=== PATIENT | female | born 1990 | race Caucasian/White ===

== ENCOUNTER → 2021-10-27 11:00 | Outpatient (BNVA) | payer MEDICARE, MEDICAID, OTHER, SELFPAY | PROVIDERS: PCP Internal Medicine; Visit Provider Anesthesiology | DX: M79.7 Fibromyalgia (principal); M47.812 Spondylosis without myelopathy or radiculopathy, cervical region; M47.816 Spondylosis without myelopathy or radiculopathy, lumbar region; M46.1 Sacroiliitis, not elsewhere classified | CPT/HCPCS: 99202 ==

== ENCOUNTER 2021-12-12 10:32 | Day surgery (SDC) | payer MEDICARE, MEDICAID, SELFPAY ==
--- NOTE | 2021-11-27 09:08 | P.CONAN_ITS ---
Documented by User: Karen Bravo NP 11/27/21 09:09 HPI - Anesthesia Eval Consult details Narrative: 31yo F for Right Sacroiliac Joint Innervation Injection PMFSH Active Problems Active Problems: All Active Problems (Updated 10/27/21 @ 11:48 by Wilian Lopez MD) Sacroiliitis (Acute) Spondylosis of lumbar region without myelopathy or radiculopathy (Acute) Spondylosis of cervical joint without myelopathy (Acute) Fibromyalgia (Acute) Past Medical History Medical History (Updated 12/12/21 @ 10:53 by Pam Ochoa, RN) Fibromyalgia HGSIL (high grade squamous intraepithelial lesion) on Pap smear of cervix Hx LEEP (loop electrosurgical excision procedure), cervix, Hydradenitis Major depression Marijuana use Obesity Sacroiliac joint dysfunction Sacroiliitis Scoliosis associated with other condition 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 Stress incontinence Social History Social History (System 11/20/21 @ 10:37 by Cat Colin) Patient Tobacco Use Status: Current everyday Tobacco user Tobacco use type: Cigarette Cigarettes Per Day: 10 Use of substances other than those prescribed or required for medical reasons: Yes Substance Use Frequency: Occasionally Are you DNR?: No Advance Directives: No Advance Directives Information Provided: Yes Meds Allergies Allergy/AdvReac Type Severity Reaction Status Date / Time bee pollen [BEE STINGS] Allergy Unknown ANAPHYLAXIS Verified 12/12/21 10:53 bee strings Allergy Unknown sweling Uncoded 11/20/21 10:37 Home Medications Medication Instructions Recorded Confirmed Last Taken Type trazodone 50 mg tablet 50 mg PO BEDTIME PRN 10/27/21 Unknown History venlafaxine 75 mg capsule,extended 75 mg PO DAILY 10/27/21 Unknown History release 24 hr (Effexor XR) Exam Exam Date and Time: November 27, [id number] Assessment and Plan Assessment Anesthesia Assessment: Chart Reviewed Documented by User: Derrek Naidu MD 12/12/21 11:57 [facility] Past Medical History Medical History (Updated 12/12/21 @ 10:53 by Pam Ochoa, RN) Fibromyalgia HGSIL (high grade squamous intraepithelial lesion) on Pap smear of cervix Hx LEEP (loop electrosurgical excision procedure), cervix, Hydradenitis Major depression Marijuana use Obesity Sacroiliac joint dysfunction Sacroiliitis Scoliosis associated with other condition 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 Stress incontinence Family History Family history of problems with anesthesia: No Surgical History History of Problems with Anesthesia: No Social History Social History (System 11/20/21 @ 10:37 by Cat Colin) Patient Tobacco Use Status: Current everyday Tobacco user Tobacco use type: Cigarette Cigarettes Per Day: 10 Use of substances other than those prescribed or required for medical reasons: Yes Substance Use Frequency: Occasionally Are you DNR?: No Advance Directives: No Advance Directives Information Provided: Yes Meds Allergies Allergy/AdvReac Type Severity Reaction Status Date / Time bee pollen [BEE STINGS] Allergy Unknown ANAPHYLAXIS Verified 12/12/21 10:53 bee strings Allergy Unknown sweling Uncoded 11/20/21 10:37 Home Medications Medication Instructions Recorded Confirmed Last Taken Type trazodone 50 mg tablet 50 mg PO BEDTIME PRN 10/27/21 Unknown History venlafaxine 75 mg capsule,extended 75 mg PO DAILY 10/27/21 Unknown History release 24 hr (Effexor XR) Exam Airway Mallampati Class: II TM Dist: >3cm Neck ROM: Full Loose/Missing/Broken Teeth: No Heart: rrr+[id number] Lungs: cta b/l Assessment and Plan Assessment Anesthesia Assessment: Anesthesia Plan Discussed Final Anesthetic Review Family History of Problems with Anesthesia: No History of Problems with Anesthesia: No NPO: Yes ASA Class: II Final Preanesthetic Review: No Changes in Pt Med Stat, Meds/Allgs Chart Reviewed, Consent Obtained/Reviewed and Anes Risks/Benef Reviewed Patient Risk: Intermediate Procedure Risk: Low Assessment/Block/Sedation in SS: Assess/Block/Sedation-SS Anesthetic Plan Anesthetic Plan: MAC: and Agree w/ Assess. and Plan Disposition: Standard PACU
--- NOTE | ~2021-12-12 | FL_ITS ---
EXAMINATION: XR FLUOROSCOPY WITH IMAGES CLINICAL INFORMATION: Diagnostic SI joint innervation injection right. COMPARISON: None. TECHNIQUE: Fluoroscopy performed by Dr. Wilian Lopez Fluoroscopy time: 0.5 minutes DAP: 9 mGy-cm2 Images: 3 FINDINGS: Images demonstrate needle placement and contrast injection adjacent to the right side of the L5 vertebral body and inferior sacroiliac joint. FL/FL guidance in OR IMPRESSION: Fluoroscopy guidance for pain management procedure.
[2021-12-12 10:43] VITALS: BMI 32.3
[2021-12-12 10:53] VITALS: BP 127/79; PULSE 92; RESP 16; TEMP 36.5; O2SAT 97
[2021-12-12 11:00] LABS: UPreg QC Valid YES; Urine Pregnancy NEGATIVE (NEGATIVE)
[2021-12-12] MEDS: Lactated Ringers 1,000 ML 100 ML IVCONT (11:06)
--- NOTE | 2021-12-12 12:02 | P.HPSUR_ITS ---
Pre-Procedural Eval Section A Date of Service: 12/12/21 The patient is an INPATIENT: No Changes since office visit: Yes Patient answered all questions The History & Physical has been completed within 30 days and I have reviewed it.: No Section B Chief Complaint: sacroilitis Details of Present Illness: as above Relevant Family History (Specify if Yes): No Relevant Social History: Other (specify) Present Medications: None Medical History: No relevant PMH History of Previous Operations: No relevant previous surgery Allergies: Allergies Allergy/AdvReac Type Severity Reaction Status Date / Time bee pollen [BEE STINGS] Allergy Unknown ANAPHYLAXIS Verified 12/12/21 10:53 bee strings Allergy Unknown sweling Uncoded 11/20/21 10:37 Review of Systems Sugical H&P ROS: Negative: Constitution, Cardiovascular, Respiratory, Neurological, Psychiatric, Hem-Onc, Allergic/Immunologic, Gastrointestinal, Genitourinary, Musculoskeletal, Integumentary, Endocrine and Eyes/E ars/Nose/Throat Exam Surgical H&P Exam: Normal: HEENT, Normal: Heart, Normal: Lungs, Normal: Extremities, Normal: Abdomen, Normal: Skin and Normal: Neurological Plan Diagnosis/Plan: Unchanged I have reviewed the history and physical and performed a pertinent physical examination on my patient. No changes have occurred unless specified.
--- NOTE | 2021-12-12 12:44 | W.PM.OPN ---
Operative Note Operative Note Date of Service: 12/12/21 Narrative: ?Diagnostic SI joint innervation injection. Informed consent was explained thoroughly to the patient.? All questions about benefits and risks for the procedure were answered. ?Patient came to the operating room she was positioned prone on the operating table with the pillow under her pelvis.? [place] [employer] monitors were applied and patient was deeply sedated.? Opioids and ketamine were avoided during the sedation. ?Her lower back and buttocks was prepped with ChloraPrep prepped and draped with sterile towels.? Sterilely draped C-arm was brought over the operating field and sq picture of patient's pelvis was demonstrated on the screen.? ?The point of interests were delineated 1st:? Point A? as the?right S1 superior articular process at it's connection with right sacral alae.? ??point B: was determined as the lowest point of the right sacroiliac joint on sacral side of the joint.? The rest of the point of interests were determined as the line between the point A and the point?B?. ?? The needles between point A and point B were planned to insert in the straight line in palisade fashion.? The skin in the projection of the points of interest were injected with small amount of local lidocaine 2% and bupivacain 0.5% 1;1, after that 22 gauge 3-1/2 inch needles were driven to the point of interest in tunnel vision fashion. ?? When needles gently contacted the bone- the each point of interest small amount of bupivacaine 0.5% less than 1 cc was injected into each needle. ?Upon completion of the injections the needles were removed sterile dressing was applied.? The patient tolerated procedure well.? She went outside of the operating room to PACU where she recovered uneventfully.? She went home without immediate complications.
[2021-12-12 12:45] VITALS: BP 108/63; PULSE 92; RESP 16; TEMP 36.2; O2SAT 100
--- NOTE | 2021-12-12 12:46 | P.BOP_ITS ---
Brief Operative Note Date of Service: 12/12/21 Pre-op diagnosis: sacroiliitis Post-op diagnosis: same Procedure: diagnostic right SI joint innervation injection Implants: none Surgeon: Wilian Lopez MD Anesthesia: MAC Was an [facility] Work[facility] used for this Procedure?: No Estimated blood loss (mL): 0 Pathology: none sent Condition: stable Disposition: PACU
[2021-12-12 12:50] VITALS: BP 114/72; PULSE 81; RESP 16; O2SAT 99
[2021-12-12 12:55] VITALS: BP 116/76; PULSE 97; RESP 18; O2SAT 99
[2021-12-12 13:00] VITALS: BP 120/85; PULSE 81; RESP 18; O2SAT 100
[2021-12-12 13:15] VITALS: BP 112/74; PULSE 92; RESP 18; TEMP 36.3; O2SAT 100
== END 2021-12-12 13:26 | disposition home or self-care (01) ==
PROVIDERS: Nurse Practitioner; PCP Internal Medicine; Visit Provider Anesthesiology
PROC: (CPT 64451; principal; 2021-12-12 11:30)
DX: M46.1 Sacroiliitis, not elsewhere classified (principal); M47.812 Spondylosis without myelopathy or radiculopathy, cervical region; M47.816 Spondylosis without myelopathy or radiculopathy, lumbar region; M79.7 Fibromyalgia; M54.9 Dorsalgia, unspecified; M54.2 Cervicalgia; R53.83 Other fatigue; F32.9 Major depressive disorder, single episode, unspecified; Z79.899 Other long term (current) drug therapy; F17.210 Nicotine dependence, cigarettes, uncomplicated
CPT/HCPCS: 64451; 81025; J2250; Q9967

== ENCOUNTER 2022-01-06 11:22 | Emergency (ER) | payer MEDICARE, MEDICAID, SELFPAY ==
[2022-01-06 11:58] VITALS: BP 158/86; PULSE 114; RESP 19; TEMP 36.6; O2SAT 99; BMI 32.3
--- NOTE | 2022-01-06 14:25 | ED.DENTAL ---
HPI - Dental/Oral General Chief complaint: Dental/Oral Stated complaint: tooth infection Time Seen by Provider: 01/06/22 14:14 History of Present Illness HPI Narrative: Patient complains of left-sided facial swelling and dental pain for 2 days, denies any fever, denies any difficulty breathing or swallowing Related Data Home Medications Medication Instructions Recorded Confirmed trazodone 50 mg tablet 50 mg PO BEDTIME PRN 10/27/21 venlafaxine 75 mg capsule,extended 75 mg PO DAILY 10/27/21 release 24 hr (Effexor XR) Previous Rx's Medication Instructions Recorded gabapentin 600 mg tablet 600 mg PO TID 30 Days #90 tab 10/27/21 tizanidine 4 mg tablet 4 mg PO Q8H PRN 30 Days #90 tab 10/27/21 acetaminophen 500 mg tablet 1,000 mg PO QID PRN #30 tab 01/06/22 amoxicillin 875 mg-potassium 1 tab PO BID 7 Days #14 tab 01/06/22 clavulanate 125 mg tablet ibuprofen 600 mg tablet 600 mg PO Q6H PRN #20 tab 01/06/22 oxycodone 5 mg tablet 5 mg PO Q6H PRN #14 tab 01/06/22 Allergies Allergy/AdvReac Type Severity Reaction Status Date / Time bee pollen [BEE STINGS] Allergy Unknown ANAPHYLAXIS Verified 12/12/21 10:53 bee strings Allergy Unknown sweling Uncoded 11/20/21 10:37 Review of Systems Review of Systems: Positive for facial swelling and dental pain Negatives are no fever no chills no dizziness no weakness no headache no neck pain no stiff neck no difficulty breathing or swallowing no drooling no chest pain no shortness of breath no abdominal pain no nausea or vomiting no skin rash Yes all other systems are reviewed and are negative [facility] Past Medical History Source: nursing notes reviewed Medical History (Updated 01/07/22 @ 00:02 by Michoacano Silva) Fibromyalgia HGSIL (high grade squamous intraepithelial lesion) on Pap smear of cervix Hx LEEP (loop electrosurgical excision procedure), cervix, Hydradenitis Major depression Marijuana use Obesity Sacroiliac joint dysfunction Sacroiliitis Scoliosis associated with other condition 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 Stress incontinence Social History Social History (System 11/20/21 @ 10:37 by Cat A [place]) Patient Tobacco Use Status: Current everyday Tobacco user Tobacco use type: Cigarette Cigarettes Per Day: 10 Advance Directives: No Advance Directives Information Provided: No Physical Exam Vital Signs: Vital Signs: Last Vital Signs Temp 98 F 01/06/22 11:58 Pulse 114 H 01/06/22 11:58 Resp 19 01/06/22 11:58 BP 158/86 H 01/06/22 11:58 Pulse Ox 99 01/06/22 11:58 BMI result Body Mass Index 32.3 General appearance is no acute distress The eyes pupils equal round reactive extraocular motions are intact Facial and dental exam there is left lower mandible facial swelling without redness Intraoral exam there is tenderness and of broken decayed tooth in the left lower aspect of the mouth, there is pus draining but no obvious area of fluctuance to incise on the gum, there is tenderness both adduct the left lateral area of the tooth but there is also tenderness in the submandibular area but no swelling no trismus no drooling and the voice is normal Pharynx no redness swelling or exudate and mucous membranes are moist Neck is supple Respiratory no distress Extremities full range of motion x4 Course Course Course Narrative: There was some mild midline tenderness in sub mandibular area, there was no trismus there was obvious lower rear tooth decay, there was left sided lower swelling, voice was normal no trouble breathing or swallowing But there was minimal midline tenderness so I had recommended IV contrast CT to make sure that there was no deeper abscess, explained to the patient that some dental infections can cause difficulty breathing or swallowing and can become dangerous and can make you very sick but she refused the CT as 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 and wanted to leave so she was discharged AMA and advised she could return any time especially if swelling worsens or she had any difficulty breathing or swallowing or developed a fever Discharge Plan Discharge Clinical Impression: Abscess, dental Patient Disposition: Home, Self-Care Additional Instructions: We wanted to do a CT to make sure the infection is not becoming more serious, but you did not want that today so we discharged you against medical advice You are very welcome to return any time for further evaluation especially if pain and swelling gets worse any difficulty breathing or swallowing I did call and pain killers and Augmentin to the pharmacy and there was pus draining from the abscess Follow as soon as possible with her dentist, it is often helpful to call frequently as they may have a cancellation Return any time any concerns Rinse frequently with salt water and you can gently massage the area to see if you can express any of the pus Prescriptions: New amoxicillin-pot clavulanate 875-125 mg tablet 1 tab PO BID 7 Days Qty: 14 0RF acetaminophen 500 mg tablet 1,000 mg PO QID PRN (Reason: pain) Qty: 30 0RF ibuprofen 600 mg tablet 600 mg PO Q6H PRN (Reason: pain) Qty: 20 0RF oxycodone 5 mg tablet 5 mg PO Q6H PRN (Reason: pain) Qty: 14 0RF Rx Instructions: Narcotic, no driving for 6 hours after taking this medication No Action venlafaxine [Effexor XR] 75 mg capsule,extended release 24hr 75 mg PO DAILY 0RF trazodone 50 mg tablet 50 mg PO BEDTIME PRN0RF gabapentin 600 mg tablet 600 mg PO TID 30 Days Qty: 90 8RF tizanidine 4 mg tablet 4 mg PO Q8H PRN (Reason: muscle spasticity) 30 Days Qty: 90 8RF Stand Alone Forms: Against Medical Advice Interventions: ED Discharge Assessment Last Done: 01/06/22 15:12 Discharge Date/Time: 01/06/22 15:14
[2022-01-06] MEDS: Ibuprofen 600 MG TABLET PO (15:08)
[2022-01-06] MEDS: Amoxicillin/Potassium Clav 875 MG TABLET PO (15:08)
[2022-01-06] MEDS: oxyCODONE HCl Immed Release 5 MG TABLET PO (15:08)
== END 2022-01-06 15:14 | disposition home or self-care (01) ==
PROVIDERS: Emergency Provider Emergency Medicine; PCP Internal Medicine
DX: K04.7 Periapical abscess without sinus (principal); K08.89 Other specified disorders of teeth and supporting structures; F12.90 Cannabis use, unspecified, uncomplicated; F17.200 Nicotine dependence, unspecified, uncomplicated
CPT/HCPCS: 99283

== ENCOUNTER 2022-10-16 21:39 | Emergency (ER) | payer MEDICARE, MEDICAID, SELFPAY ==
[2022-10-16 21:44] VITALS: BP 106/66; PULSE 121; RESP 12; TEMP 36.4; O2SAT 100; BMI 33.9
[2022-10-16 23:05] LABS: Appearance Urine Clear; Color Urine Yellow; Glucose Urine UA Negative (Negative); Leukocyte Esterase Urine Negative (Negative); Nitrite Urine Negative (Negative); Specific Gravity - Urine 1.025 (1.005-1.025); Urine Blood Negative (Negative); Urine Ketones Negative (Negative); Urine Protein Negative (Neg-Trace)
[2022-10-16 23:09] LABS: UPreg QC Valid YES; Urine Pregnancy POSITIVE (NEGATIVE)
[2022-10-16 23:19] LABS: COVID-19 Test Negative (Negative); IDNOW Serial# 08D9AD1C; IDNOW Serial# 16C4AD1C; Strep A Nucleic Acid Negative (Negative)
[2022-10-16 23:20] LABS: IDNOW Serial# BCCEAD1C; Influenza A Negative (Negative); Influenza B2 Negative (Negative)
--- NOTE | 2022-10-16 23:48 | ED_ITS ---
HPI - General Adult General Chief complaint: General Medical Stated complaint: hurts to swallow Time Seen by Provider: 10/16/22 23:14 History of Present Illness HPI narrative: Patient is a 32-year-old female 1st went well there was no complications. Patient presented today with having feeling of foreign body sensation in the back of the throat for last 4 days. There was no inciting events. Patient claims that she has been eating well. She was able to eat hot dogs and drinks this afternoon without having any issues. She denies any changes in her voice. She denies any difficulty breathing. Patient is from home. She tried a stick a finger down her throat feels unable to find a problem. Patient feels that there is something maybe there. No inciting events. Patient did not have any particular food prior to the symptoms starting. The symptom was more gradual in onset. No fever no chills. Patient is currently approximately 8 weeks . Had an ultrasound done at [facility] [place]. It was positive for an intrauterine . Patient denies any vaginal b leeding. No abdominal pain. He is from home. Related Data Home Medications Medication Instructions Recorded Confirmed trazodone 50 mg tablet 50 mg PO BEDTIME PRN 10/27/21 venlafaxine 75 mg capsule,extended 75 mg PO DAILY 10/27/21 release 24 hr (Effexor XR) Previous Rx's Medication Instructions Recorded gabapentin 600 mg tablet 600 mg PO TID 30 days #90 tabs 10/27/21 tizanidine 4 mg tablet 4 mg PO Q8H PRN muscle spasticity 10/27/21 30 days #90 tabs acetaminophen 500 mg tablet 1,000 mg PO QID PRN pain #30 tabs 01/06/22 amoxicillin 875 mg-potassium 1 tab PO BID 7 days #14 tabs 01/06/22 clavulanate 125 mg tablet ibuprofen 600 mg tablet 600 mg PO Q6H PRN pain #20 tabs 01/06/22 oxycodone 5 mg tablet 5 mg PO Q6H PRN pain #14 tabs 01/06/22 Allergies Allergy/AdvReac Type Severity Reaction Status Date / Time bee pollen [BEE STINGS] Allergy Unknown ANAPHYLAXIS Verified 10/16/22 21:49 bee strings Allergy Unknown sweling Uncoded 10/16/22 21:49 Review of Systems Review of Systems: No fever no chills no chest pain or shortness breath speaks in complete sentences Yes all other systems are reviewed and are negative [facility] Past Medical History Attestation statement: The following information was validated with the patient. 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 Oriented X3. No acute distress. Eyes: Pupils equal, round and reactive to light. ENT: Pharynx normal. Neck: Normal inspection. Neck supple. No lymph nodes noted. No crepitus CVS: Normal heart rate and rhythm. Pulses normal. Normal S1 and S2 Respiratory: No respiratory distress. Breath sounds normal. No Wheezing. No rales Abdomen: Soft and nontender. No rigidity. No distention. good BS x4 Skin: Skin warm and dry. Normal skin color. Normal skin turgor. Extremities: No lower extremity edema. Neurovascular intact to all extremities. No Lacerations. No Rash Neuro: Oriented X 3. No motor deficit. No sensory deficit. Moving all extermities. No slurred speech Medical Decision Making Differential Diagnosis Question pharyngitis. Patient posterior pharynx is completely normal. No evidence for pharyngitis. Flu RSV COVID were all negative. Patient's urine was negative for infection. There is no airway compromise is patient is breathing normally. O2 sat is normal. Patient has no physical obstruction. Able to tolerate a hot dog. Patient has no change in her voice grossly. Tried to reassure patient as much as possible. Will set referred patient to ENT for further evaluation of patient's symptoms. She had an ultrasound done for this . Consistent with having in Street uterine . Unlikely to have an ectopic. Patient's strep was also negative Lab Data MDM Lab Attestation statement: I reviewed the patient's lab results. Labs: Lab Results 10/16/22 10/16/22 10/16/22 Range/Units 22:54 22:54 22:54 Urine Color Urine Appearance Urine pH (5.0-9.0) Ur Specific [place] (1.005-1.025) Urine Protein (Neg-Trace) mg/dL Urine Glucose (UA) (Negative) mg/dL Urine Ketones (Negative) mg/dL Urine Blood (Negative) Urine Nitrite (Negative) Ur Leukocyte Esterase (Negative) Urine Test (NEGATIVE) COVID-19 (WALT) Negative (Negative) COVID-[employer] See Note Influenza Type A (ROMULO) Negative (Negative) Influenza Type B (ROMULO) Negative (Negative) Influenza A & B Note See Note S. pyogenes GrpA ROMULO Negative (Negative) 10/16/22 10/16/22 Range/Units 22:54 22:54 Urine Color Yellow Urine Appearance Clear Urine pH 7.0 (5.0-9.0) Ur Specific [place] 1.025 (1.005-1.025) Urine Protein Negative (Neg-Trace) mg/dL Urine Glucose (UA) Negative (Negative) mg/dL Urine Ketones Negative (Negative) mg/dL Urine Blood Negative (Negative) Urine Nitrite Negative (Negative) Ur Leukocyte Esterase Negative (Negative) Urine Test POSITIVE H (NEGATIVE) COVID-19 (WALT) (Negative) COVID-[employer] Influenza Type A (ROMULO) (Negative) Influenza Type B (ROMULO) (Negative) Influenza A & B Note S. pyogenes GrpA ROMULO (Negative) Independent Historian Clinical information obtained from an independent historian. History obtained from or confirmed by: Spouse Discharge Plan Discharge Clinical Impression: Pain in throat Patient Disposition: Home, Self-Care Instructions: Pharyngitis (ED) Prescriptions: No Action amoxicillin-pot clavulanate 875-125 mg tablet 1 tab PO BID 7 Days Qty: 14 0RF acetaminophen 500 mg tablet 1,000 mg PO QID PRN (Reason: pain) Qty: 30 0RF ibuprofen 600 mg tablet 600 mg PO Q6H PRN (Reason: pain) Qty: 20 0RF oxycodone 5 mg tablet 5 mg PO Q6H PRN (Reason: pain) Qty: 14 0RF Rx Instructions: Narcotic, no driving for 6 hours after taking this medication venlafaxine [Effexor XR] 75 mg capsule,extended release 24hr 75 mg PO DAILY trazodone 50 mg tablet 50 mg PO BEDTIME PRN gabapentin 600 mg tablet 600 mg PO TID 30 Days Qty: 90 8RF tizanidine 4 mg tablet 4 mg PO Q8H PRN (Reason: muscle spasticity) 30 Days Qty: 90 8RF Referrals: Merritt Hancock [Physician] - 2 days
== END 2022-10-17 00:07 | disposition home or self-care (01) ==
PROVIDERS: Physician Assistant; Emergency Provider Emergency Medicine Emergency Medical Services; PCP Internal Medicine
DX: R13.10 Dysphagia, unspecified (principal); F17.210 Nicotine dependence, cigarettes, uncomplicated; Z20.822 Contact with and (suspected) exposure to COVID-19; Z20.828 Contact with and (suspected) exposure to other viral communicable diseases; Z79.899 Other long term (current) drug therapy; Z71.6 Tobacco abuse counseling
CPT/HCPCS: 81003; 81025; 87502; 87635; 87651; 99283; 99284

== ENCOUNTER 2022-12-21 21:29 | Emergency (ER) | payer MEDICARE, MEDICAID, SELFPAY ==
[2022-12-21 21:53] VITALS: BP 159/96; PULSE 115; RESP 16; TEMP 36.7; O2SAT 100; BMI 31.4
[2022-12-21 23:19] VITALS: BP 121/76; PULSE 88; RESP 20; TEMP 37; O2SAT 100
--- NOTE | 2022-12-21 23:43 | ED.ANXIETY ---
HPI - Anxiety General Chief Complaint: Anxiety Stated Complaint: panic attack Time Seen by Provider: 12/21/22 23:32 Source: patient Mode of arrival: ambulatory Limitations: no limitations History of Present Illness HPI narrative: Patient with history History of anxiety used relief except which was stopped about 5 months ago followed by therapist been very anxious for last 1 week and able to sleep tried Effexor 25 mg at home with partial response in the past when she was taking Effexor she did not like the side effects patient plan to see psychiatrist soon. Denies any depression no suicidal ideation Related Data Home Medications Medication Instructions Recorded Confirmed trazodone 50 mg tablet 50 mg PO BEDTIME PRN 10/27/21 venlafaxine 75 mg capsule,extended 75 mg PO DAILY 10/27/21 release 24 hr (Effexor XR) Previous Rx's Medication Instructions Recorded gabapentin 600 mg tablet 600 mg PO TID 30 days #90 tabs 10/27/21 tizanidine 4 mg tablet 4 mg PO Q8H PRN muscle spasticity 10/27/21 30 days #90 tabs acetaminophen 500 mg tablet 1,000 mg PO QID PRN pain #30 tabs 01/06/22 amoxicillin 875 mg-potassium 1 tab PO BID 7 days #14 tabs 01/06/22 clavulanate 125 mg tablet ibuprofen 600 mg tablet 600 mg PO Q6H PRN pain #20 tabs 01/06/22 oxycodone 5 mg tablet 5 mg PO Q6H PRN pain #14 tabs 01/06/22 lorazepam 1 mg tablet (Ativan) 1 mg PO BID PRN anxiety #20 tabs 12/21/22 Allergies Allergy/AdvReac Type Severity Reaction Status Date / Time bee pollen [BEE STINGS] Allergy Unknown ANAPHYLAXIS Verified 10/16/22 21:49 bee strings Allergy Unknown sweling Uncoded 10/16/22 21:49 Review of Systems Review of Systems: Yes all other systems are reviewed and are negative PMFSH Past Medical History Medical History Fibromyalgia HGSIL (high grade squamous intraepithelial lesion) on Pap smear of cervix Hx LEEP (loop electrosurgical excision procedure), cervix, Hydradenitis Major depression Marijuana use Obesity Sacroiliac joint dysfunction Sacroiliitis Scoliosis associated with other condition 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 Oriented X3. No acute distress. Anxious Eyes: PERRLA, No Nystagmus ENT: Pharynx normal. Oral Mucosa moist Neck: Normal inspection. Neck supple. CVS: Normal heart rate and rhythm. Pulses normal. Respiratory: No respiratory distress. Equal air entry bilateral, no wheezing/rales/rhonchi Abdomen: Soft and nontender. Bowel sounds are present, no mass palpable, no CVA tenderness Skin: Skin warm and dry. Normal skin color. Normal skin turgor. Extremities: No lower extremity edema. No calf tenderness Neuro: Oriented X 3. No motor deficit. No sensory deficit.No cerebellar signs , cranial nerves II-XII intact Medications Administered Discontinued Medications Generic Name Dose Route Start Last Admin Trade Name Freq PRN Reason Stop Dose Admin Lorazepam 2 mg 12/21/22 23:43 12/21/22 23:58 Lorazepam 1 Mg Tablet PO 12/21/22 23:44 2 mg ONCE ONE Administration Medical Decision Making Medical Decision Making MDM Narrative: Patient with anxiety discharged on Ativan advised to follow up with her PCP/therapist/psychiatrist Discharge Plan Discharge Clinical Impression: Acute anxiety Patient Disposition: Home, Self-Care Instructions: Anxiety (ED) Additional Instructions: Take medication for anxiety as prescribed Follow-up with therapist and psychiatrist Prescriptions: New lorazepam [Ativan] 1 mg tablet 1 mg PO BID PRN (Reason: anxiety) Qty: 20 0RF No Action amoxicillin-pot clavulanate 875-125 mg tablet 1 tab PO BID 7 Days Qty: 14 0RF acetaminophen 500 mg tablet 1,000 mg PO QID PRN (Reason: pain) Qty: 30 0RF ibuprofen 600 mg tablet 600 mg PO Q6H PRN (Reason: pain) Qty: 20 0RF oxycodone 5 mg tablet 5 mg PO Q6H PRN (Reason: pain) Qty: 14 0RF Rx Instructions: Narcotic, no driving for 6 hours after taking this medication venlafaxine [Effexor XR] 75 mg capsule,extended release 24hr 75 mg PO DAILY trazodone 50 mg tablet 50 mg PO BEDTIME PRN gabapentin 600 mg tablet 600 mg PO TID 30 Days Qty: 90 8RF tizanidine 4 mg tablet 4 mg PO Q8H PRN (Reason: muscle spasticity) 30 Days Qty: 90 8RF Interventions: ED Discharge Assessment Last Done: 12/22/22 00:21 Discharge Date/Time: 12/22/22 00:22
[2022-12-21] MEDS: LORazepam 1 MG TABLET 2 MG PO (23:58)
--- NOTE | 2022-12-22 00:19 | PC.NURSE ---
pt. sitting in bed with significant other at bedside. Pt. reports moderate anxiety as she's been off her anxiety meds for a while. Pt. is on waiting lists for a mental health provider to prescribe meds as her PCP no longer prescribes mental health medications. Pt. medicated with ativan and d/c'd home.
== END 2022-12-22 00:22 | disposition home or self-care (01) ==
PROVIDERS: Emergency Provider Internal Medicine
DX: F41.0 Panic disorder [episodic paroxysmal anxiety] (principal); F41.8 Other specified anxiety disorders
CPT/HCPCS: 99284

== ENCOUNTER 2023-03-27 11:48 | Emergency (ER) | payer MEDICARE, MEDICAID, SELFPAY ==
--- NOTE | 2023-03-27 11:53 | ED_ITS ---
HPI - Abdominal Pain General Chief Complaint: Nausea/Vomiting/Diarrhea Stated Complaint: diarrhea Time Seen by Provider: 03/27/23 13:09 Source: patient, RN notes reviewed and old records reviewed Mode of arrival: ambulatory Limitations: no limitations History of Present Illness HPI narrative: 32 yo female with a history of anxiety, fibromyalgia, presents to the ED c/o nonbloody mucousy diarrhea x 1 month and generalized fatigue/weakness x today. Admits symptoms began after taking Augmentin for prior dental infection 3 weeks ago, w/1 pill left. She reports dark stools for a couple of weeks that transitioned to yellow stools, denies black/dark or bloody stools at present. Also reports her anxiety exacerbates her diarrhea. Reports abdominal cramping that is now resolved. LMP now. Admits to history of LEEP few months ago, denies other abdominal surgeries, chest pain, shortness of breath, nausea/vomiting, dysuria/hematuria, vaginal bleeding/discharge MD elicited complaint: abdominal pain Onset (ago): day(s) Related Data Home Medications Medication Instructions Recorded Confirmed trazodone 50 mg tablet 50 mg PO BEDTIME PRN 10/27/21 venlafaxine 75 mg capsule,extended 75 mg PO DAILY 10/27/21 release 24 hr (Effexor XR) Previous Rx's Medication Instructions Recorded gabapentin 600 mg tablet 600 mg PO TID 30 days #90 tabs 10/27/21 tizanidine 4 mg tablet 4 mg PO Q8H PRN muscle spasticity 10/27/21 30 days #90 tabs acetaminophen 500 mg tablet 1,000 mg PO QID PRN pain #30 tabs 01/06/22 amoxicillin 875 mg-potassium 1 tab PO BID 7 days #14 tabs 01/06/22 clavulanate 125 mg tablet ibuprofen 600 mg tablet 600 mg PO Q6H PRN pain #20 tabs 01/06/22 oxycodone 5 mg tablet 5 mg PO Q6H PRN pain #14 tabs 01/06/22 lorazepam 1 mg tablet (Ativan) 1 mg PO BID PRN anxiety #20 tabs 12/21/22 vancomycin 125 mg capsule 125 mg PO QID 10 days #40 caps 03/27/23 Allergies Allergy/AdvReac Type Severity Reaction Status Date / Time bee pollen [BEE STINGS] Allergy Unknown ANAPHYLAXIS Verified 03/27/23 11:54 bee strings Allergy Unknown sweling Uncoded 03/27/23 11:54 Review of Systems Review of Systems Constitutional: No Fever, No Chills, + Fatigue, No Malaise ENT/Mouth: No Hearing loss, No Ear Pain, No sore throat, No Rhinorrhea, No Swallowing Difficulty Eyes: No Eye Pain, No Swelling, No Redness Cardiovascular: No Chest Pain, No SOB, No Palpitations Respiratory: No Cough, No Sputum, No Wheezing, No Dyspnea Gastrointestinal: No Nausea, No Vomiting, + Diarrhea, No Constipation, No Abdominal pain, No Hematochezia, No Melena Genitourinary: No Dysuria, No Hematuria, No Urinary Incontinence/retention,No Flank Pain Musculoskeletal: No joint pain, No Myalgias, No Joint Swelling Skin: No Skin Lesions, No rash Neuro: +generalized Weakness, No Headache Psych: + Anxiety/Panic Yes all other systems are reviewed and are negative Constitutional: Reports as per [facility] Past Medical History Attestation statement: The following information was validated with the patient. 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 Stress incontinence Social History Social History Alcohol intake: never Patient Tobacco Use Status: Current everyday Tobacco user Tobacco use type: Cigarette Cigarettes Per Day: 10 Smoked in Last 30 Days: Yes Use of substances other than those prescribed or required for medical reasons: No Substance Use Type: Marijuana Advance Directives: No Advance Directives Information Provided: No Patient : No Physical Exam ED Vital Signs: Vital Signs - 24 hr 03/27/23 11:54 03/27/23 12:44 03/27/23 14:03 Temperature 98 F 98.1 F Pulse Rate 78 64 56 Respiratory Rate 16 17 18 Blood Pressure 110/58 L 106/50 L 113/59 L Pulse Oximetry 100 99 100 Oxygen Delivery Method Room Air Room Air Room Air BMI result Body Mass Index 32.3 Const General: alert, awake and anxious; No acute distress Nutritional Appearance: average body habitus Orientation/consciousness: patient oriented x3 Limitations: no limitations HENMT Head: Yes normal to inspection and Yes atraumatic Ears: hearing grossly normal bilaterally General nose exam: Normal external nose present Face and sinus: Yes normal facial exam Eyes General: appearance normal, both eyes and all related structures EOM: EOMs intact bilaterally Neck Neck: Yes normal visual inspection Resp Effort & Inspection: normal respiratory effort and no respiratory distress Auscultation: clear to auscultation bilaterally Cardio Palpation: normal PMI Rate: regular rate Rhythm: regular rhythm Heart sounds: S1 normal heart sound present and S2 normal heart sound present GI Inspection: Yes normal to inspection and No distended Palpation (GI): Soft to palpation, nontender, no guarding, not rigid, hepatosplenomegaly present and No Rebound tenderness present Percussion: Yes normal to percussion Auscultation: normal bowel sounds Rectal Exam - Female: deferred General: Yes no CVA tenderness Back/Spine/Pelvis Back: no CVA tenderness Skin Rashes: no rashes Wounds: no wounds Neuro General: patient oriented x3 Gait exam (Neuro): Normal gait present Extrem General: Yes normal to inspection and Yes no pedal edema Course Course Course Narrative: This is an RME: Additional HPI, ROS, PE not included below will be deferred to primary provider. Patient is a 32-year-old female who presents to the emergency department Complaining of ABD pain right upper ABD upon awakening this morning, feeling weak, nausea. States she has been experiencing intermittent upper ABD pain and diarrhea for 1 month. Today pain was much more severe, resolved at this time. The feeling of weakness was most concerning for her. She reports that she has completed a 10 day course of amoxicillin for a dental infection. Denies fevers, chills, genitourinary symptoms. Plan: Labs, urinalysis -1538--no leukocytosis. Labs otherwise unremarkable. UA and negative -tox screen positive for fentanyl and THC -stool studies sent -1618--C diff toxin positive > patient's abdomen remained soft nontender. Low suspicion for toxic megacolon. No evidence of sepsis or severe dehydration. Discussed at length with patient plans of antibiotic compliance, hygiene, and close PCP follow-up. Discussed worrisome signs and symptoms strict return precautions. Patient is tolerating p.o. in the ED Results discussed with patient including worrisome signs and symptoms and strict return precautions, and when to return to the emergency department. They verbalized understanding and feel safe for discharge at this time. Medical Decision Making Medical Decision Making [facility] Narrative: 32 yo female with a history of anxiety, fibromyalgia, presents to the ED c/o nonbloody mucousy diarrhea x 1 month and generalized fatigue/weakness x today. On exam vital signs stable, NAD, nontoxic appearing, abdomen soft, nondistended and nontender, no rebound or guarding. No CVAT. Concern for C.diff vs IBS vs gastroenteritis vs colitis vs anxiety. Lower suspicion for diverticulitis/appendicitis, cholecystitis/pancreatitis or GI bleed Plan: Labs, UA, stool studies including C diff, COVID/influenza testing, IVF, Ativan, p.o. challenge Please refer to course for remaining clinical decision making, interpretation of labs/imaging results, and discussions with consultants and/or family members. Differential Diagnosis Differential Diagnoses: The differential diagnosis associated with the prese ntation includes As above Admission/Observation Consideration of admission/observation: Escalation of care including admission/ observation considered Lab Data [facility] Lab Attestation statement: I reviewed the patient's lab results. 03/27/23 12:12 03/27/23 12:12 Labs: Lab Results 03/27/23 03/27/23 03/27/23 Range/Units 12:12 12:12 12:12 WBC 8.3 (4.8-10.8) X10*3/uL RBC 4.34 (4.20-5.50) X10*6/uL Hgb 12.1 (12.0-16.0) g/dl Hct 36.2 L (37.0-47.0) % MCV 83.4 (80.0-98.0) fL MCH 27.9 (27.0-33.0) pg MCHC 33.4 (31.0-35.0) g/dl RDW 12.9 (11.0-16.0) % Plt Count 239 (160-400) X10*3/uL MPV 12.6 H (9.4-12.3) fL Immature Gran % (Auto) 0.4 (0.0-0.4) % Neut % (Auto) 60.0 (45-73) % Lymph % (Auto) 33.3 (20-40) % [place] % (Auto) 5.0 (2-11) % Eos % (Auto) 0.8 (0-4) % Baso % (Auto) 0.5 (0-2) % Lymph # (Auto) 2.8 (1.2-4.9) X10*3/uL [place] # (Auto) 0.4 (0.1-1.2) X10*3/uL Eos # (Auto) 0.1 (0.0-0.4) X10*3/uL Baso # (Auto) 0.0 (0.0-0.2) X10*3/uL Abs Immat Gran (auto) 0.03 (0.00-0.03) X10*3/uL Absolute Neuts (auto) 5.0 (2.0-8.3) x10*3/uL Absolute Nucleated RBC 0.000 (0.0-0.012) X10*3/uL Nucleated RBC % (auto) 0.0 (0.0-0.2) /100WBC Sodium 141 (135-145) mmol/L Potassium 3.5 (3.3-5.1) mmol/L Chloride 108 (96-108) mmol/L Carbon Dioxide 24 (22-29) mmol/L Anion Gap 13 (12-20) BUN 10 (9-16) mg/dL Creatinine 0.86 (0.5-1.4) mg/dL Estim Creat Clear Calc 107.5 Estimated GFR > 60 Random Glucose 106 (60-115) mg/dL Calcium 9.4 (8.4-10.2) mg/dL Magnesium 2.1 (1.6-2.6) mg/dL Total Bilirubin 0.6 (0.0-1.0) mg/dL AST 19 (5-31) U/L ALT 31 (0-31) U/L Alkaline Phosphatase 49 (39-117) U/L Total Protein 7.3 (6.5-8.0) g/dL Albumin 4.2 (3.5-5.0) g/dL Lipase 17 (8-78) U/L Urine Color Yellow Urine Appearance Clear Urine pH 6.5 (5.0-9.0) Ur Specific [place] <= 1.005 (1.005-1.025) Urine Protein Negative (Neg-Trace) mg/dL Urine Glucose (UA) Negative (Negative) mg/dL Urine Ketones Negative (Negative) mg/dL Urine Blood Negative (Negative) Urine Nitrite Negative (Negative) Ur Leukocyte Esterase Negative (Negative) Urine Test (NEGATIVE) Urine Opiates Screen (Not Detect) Urine Fentanyl Screen (Not Detect) Ur Barbiturates Screen (Not Detect) Ur Phencyclidine Scrn (Not Detect) Ur Amphetamines Screen (Not Detect) U Benzodiazepines Scrn (Not Detect) Urine Cocaine Screen (Not Detect) U Marijuana (THC) Screen (Not Detect) C. difficile Tox B Gene (Negative) COVID-19 ([facility]) (Negative) COVID-19 Clin Com Influenza Type A ([facility]) (Negative) Influenza Type B (ROM[facility]O) (Negative) Influenza A & B Note 03/27/23 03/27/23 03/27/23 Range/Units 12:12 12:12 15:03 WBC (4.8-10.8) X10*3/uL RBC (4.20-5.50) X10*6/uL Hgb (12.0-16.0) g/dl Hct (37.0-47.0) % MCV (80.0-98.0) fL MCH (27.0-33.0) pg MCHC (31.0-35.0) g/dl RDW (11.0-16.0) % Plt Count (160-400) X10*3/uL MPV (9.4-12.3) fL Immature Gran % (Auto) (0.0-0.4) % Neut % (Auto) (45-73) % Lymph % (Auto) (20-40) % [place] % (Auto) (2-11) % Eos % (Auto) (0-4) % Baso % (Auto) (0-2) % Lymph # (Auto) (1.2-4.9) X10*3/uL [place] # (Auto) (0.1-1.2) X10*3/uL Eos # (Auto) (0.0-0.4) X10*3/uL Baso # (Auto) (0.0-0.2) X10*3/uL Abs Immat Gran (auto) (0.00-0.03) X10*3/uL Absolute Neuts (auto) (2.0-8.3) x10*3/uL Absolute Nucleated RBC (0.0-0.012) X10*3/uL Nucleated RBC % (auto) (0.0-0.2) /100WBC Sodium (135-145) mmol/L Potassium (3.3-5.1) mmol/L Chloride (96-108) mmol/L Carbon Dioxide (22-29) mmol/L Anion Gap (12-20) BUN (9-16) mg/dL Creatinine (0.5-1.4) mg/dL Estim Creat Clear Calc Estimated GFR Random Glucose (60-115) mg/dL Calcium (8.4-10.2) mg/dL Magnesium (1.6-2.6) mg/dL Total Bilirubin (0.0-1.0) mg/dL AST (5-31) U/L ALT (0-31) U/L Alkaline Phosphatase (39-117) U/L Total Protein (6.5-8.0) g/dL Albumin (3.5-5.0) g/dL Lipase (8-78) U/L Urine Color Urine Appearance Urine pH (5.0-9.0) Ur Specific [place] (1.005-1.025) Urine Protein (Neg-Trace) mg/dL Urine Glucose (UA) (Negative) mg/dL Urine Ketones (Negative) mg/dL Urine Blood (Negative) Urine Nitrite (Negative) Ur Leukocyte Esterase (Negative) Urine Test NEGATIVE (NEGATIVE) Urine Opiates Screen Not Detected (Not Detect) Urine Fentanyl Screen POSITIVE H (Not Detect) Ur Barbiturates Screen Not Detected (Not Detect) Ur Phencyclidine Scrn Not Detected (Not Detect) Ur Amphetamines Screen Not Detected (Not Detect) U Benzodiazepines Scrn Not Detected (Not Detect) Urine Cocaine Screen Not Detected (Not Detect) U Marijuana (THC) Screen POSITIVE H (Not Detect) C. difficile Tox B Gene (Negative) COVID-19 ([facility]) (Negative) COVID-19 Clin Com Influenza Type A ([facility]) Negative (Negative) Influenza Type B ([facility]) Negative (Negative) Influenza A & B Note See Note 03/27/23 03/27/23 Range/Units 15:03 15:03 WBC (4.8-10.8) X10*3/uL RBC (4.20-5.50) X10*6/uL Hgb (12.0-16.0) g/dl Hct (37.0-47.0) % MCV (80.0-98.0) fL MCH (27.0-33.0) pg MCHC (31.0-35.0) g/dl RDW (11.0-16.0) % Plt Count (160-400) X10*3/uL MPV (9.4-12.3) fL Immature Gran % (Auto) (0.0-0.4) % Neut % (Auto) (45-73) % Lymph % (Auto) (20-40) % [place] % (Auto) (2-11) % Eos % (Auto) (0-4) % Baso % (Auto) (0-2) % Lymph # (Auto) (1.2-4.9) X10*3/uL [place] # (Auto) (0.1-1.2) X10*3/uL Eos # (Auto) (0.0-0.4) X10*3/uL Baso # (Auto) (0.0-0.2) X10*3/uL Abs Immat Gran (auto) (0.00-0.03) X10*3/uL Absolute Neuts (auto) (2.0-8.3) x10*3/uL Absolute Nucleated RBC (0.0-0.012) X10*3/uL Nucleated RBC % (auto) (0.0-0.2) /100WBC Sodium (135-145) mmol/L Potassium (3.3-5.1) mmol/L Chloride (96-108) mmol/L Carbon Dioxide (22-29) mmol/L Anion Gap (12-20) BUN (9-16) mg/dL Creatinine (0.5-1.4) mg/dL Estim Creat Clear Calc Estimated GFR Random Glucose (60-115) mg/dL Calcium (8.4-10.2) mg/dL Magnesium (1.6-2.6) mg/dL Total Bilirubin (0.0-1.0) mg/dL AST (5-31) U/L ALT (0-31) U/L Alkaline Phosphatase (39-117) U/L Total Protein (6.5-8.0) g/dL Albumin (3.5-5.0) g/dL Lipase (8-78) U/L Urine Color Urine Appearance Urine pH (5.0-9.0) Ur Specific [place] (1.005-1.025) Urine Protein (Neg-Trace) mg/dL Urine Glucose (UA) (Negative) mg/dL Urine Ketones (Negative) mg/dL Urine Blood (Negative) Urine Nitrite (Negative) Ur Leukocyte Esterase (Negative) Urine Test (NEGATIVE) Urine Opiates Screen (Not Detect) Urine Fentanyl Screen (Not Detect) Ur Barbiturates Screen (Not Detect) Ur Phencyclidine Scrn (Not Detect) Ur Amphetamines Screen (Not Detect) U Benzodiazepines Scrn (Not Detect) Urine Cocaine Screen (Not Detect) U Marijuana (THC) Screen (Not Detect) C. difficile Tox B Gene POSITIVE A* (Negative) COVID-19 ([facility]) Negative (Negative) COVID-19 Clin Com See Note Influenza Type A ([facility]) (Negative) Influenza Type B ([facility]) (Negative) Influenza A & B Note External Record Review External record reviewed: Inpatient record, Office record, Outpatient record, Prior outpatient labs, Prior outpatient radiology, Primary care record and Outside ED record Tests considered The following testing was considered but not selected: As above CT although not indicated with abdomen soft/nontender Prescription Management I considered prescription management with: Pain Medication and Antibiotic Social Determinants Patient?s care significantly limited by Social Determinants of Health including: Alcoholism and drug addiction in family and Problems related to primary support group Medications Administered Discontinued Medications Generic Name Dose Route Start Last Admin Trade Name Freq PRN Reason Stop Dose Admin Sodium Chloride 1,000 mls @ 999 mls/hr 03/27/23 13:45 03/27/23 13:57 Ns IV 03/27/23 14:45 Infused .Q1H1M DAVID Infusion Lorazepam 1 mg 03/27/23 13:41 03/27/23 14:06 Lorazepam 1 Mg Tablet PO 03/27/23 13:42 1 mg ONCE ONE Administration Vancomycin HCl 125 mg 03/27/23 16:20 03/27/23 16:31 Vancomycin Hcl 125 Mg Capsule PO 03/27/23 16:21 125 mg ONCE ONE Administration Discharge Plan Discharge Clinical Impression: Clostridium difficile infection Patient Disposition: Home, Self-Care Instructions: C. Diff (Clostridioides Difficile) Infection (ED) Additional Instructions: Your blood work is reassuring. However her stools positive for C diff, this is a contagious: Infection. Please avoid sharing bathrooms with others if possible, wash bathrooms thoroughly, wash your hands Make sure staying hydrated Practice a bland diet Vancomycin as antibiotic please take as prescribed If you develop constant worsening abdominal pain, persistent/unremitting diarrhea, nausea/vomiting, you are unable to eat or drink or have fever return to the emergency department Prescriptions: New vancomycin 125 mg capsule 125 mg PO QID 10 Days Qty: 40 0RF No Action lorazepam [Ativan] 1 mg tablet 1 mg PO BID PRN (Reason: anxiety) Qty: 20 0RF amoxicillin-pot clavulanate 875-125 mg tablet 1 tab PO BID 7 Days Qty: 14 0RF acetaminophen 500 mg tablet 1,000 mg PO QID PRN (Reason: pain) Qty: 30 0RF ibuprofen 600 mg tablet 600 mg PO Q6H PRN (Reason: pain) Qty: 20 0RF oxycodone 5 mg tablet 5 mg PO Q6H PRN (Reason: pain) Qty: 14 0RF Rx Instructions: Narcotic, no driving for 6 hours after taking this medication venlafaxine [Effexor XR] 75 mg capsule,extended release 24hr 75 mg PO DAILY trazodone 50 mg tablet 50 mg PO BEDTIME PRN gabapentin 600 mg tablet 600 mg PO TID 30 Days Qty: 90 8RF tizanidine 4 mg tablet 4 mg PO Q8H PRN (Reason: muscle spasticity) 30 Days Qty: 90 8RF Referrals: [facility] [place] G[facility] Services [Provider Group] - 1 week Physician,Unknown J [Primary Care Provider] -
[2023-03-27 11:54] VITALS: BP 110/58; PULSE 78; RESP 16; TEMP 36.6; O2SAT 100; BMI 32.3
[2023-03-27 12:16] LABS: MANUAL DIFF FLAG NO
[2023-03-27 12:33] LABS: Alanine Aminotransferase 31 U/L (0-31); Albumin Level 4.2 g/dL (3.5-5.0); Alkaline Phosphatase 49 U/L (39-117); Anion Gap 13 (12-20); Aspartate Amino Transferase 19 U/L (5-31); Bilirubin Total 0.6 mg/dL (0.0-1.0); Blood Urea Nitrogen 10 mg/dL (9-16); Calcium 9.4 mg/dL (8.4-10.2); Carbon Dioxide 24 mmol/L (22-29); Chloride 108 mmol/L (96-108); Creatinine Clr Calc Pharmacy 107.5; Estimated Glomerular Filt Rate > 60; Glucose Random 106 mg/dL (60-115); Lipase 17 U/L (8-78); Potassium 3.5 mmol/L (3.3-5.1); Sodium 141 mmol/L (135-145); Total Protein 7.3 g/dL (6.5-8.0)
[2023-03-27 12:44] VITALS: BP 106/50; PULSE 64; RESP 17; TEMP 36.7; O2SAT 99
[2023-03-27 12:52] LABS: Basophils Percent Auto 0.5 % (0-2); Eosinophils Absolute Auto 0.1 X10*3/uL (0.0-0.4); Eosinophils Percent Auto 0.8 % (0-4); Hematocrit 36.2 % (37.0-47.0); Hemoglobin 12.1 g/dl (12.0-16.0); Imm Gran Abs Auto 0.03 X10*3/uL (0.00-0.03); Imm Gran Pct Auto 0.4 % (0.0-0.4); Lymphocytes Absolute Auto 2.8 X10*3/uL (1.2-4.9); Lymphocytes Percent Auto 33.3 % (20-40); Mean Corpuscular HGB Conc 33.4 g/dl (31.0-35.0); Mean Corpuscular Hemoglobin 27.9 pg (27.0-33.0); Mean Corpuscular Volume 83.4 fL (80.0-98.0); Mean Platelet Volume 12.6 fL (9.4-12.3); Monocytes Absolute Auto 0.4 X10*3/uL (0.1-1.2); Platelet Count 239 X10*3/uL (160-400); Red Blood Count 4.34 X10*6/uL (4.20-5.50); Red Cell Distribution Width 12.9 % (11.0-16.0); White Blood Count 8.3 X10*3/uL (4.8-10.8)
[2023-03-27 12:53] LABS: Appearance Urine Clear; Color Urine Yellow; Glucose Urine UA Negative (Negative); Leukocyte Esterase Urine Negative (Negative); Nitrite Urine Negative (Negative); PH 6.5 (5.0-9.0); Specific Gravity - Urine <= 1.005 (1.005-1.025); Urine Blood Negative (Negative); Urine Ketones Negative (Negative); Urine Protein Negative (Neg-Trace)
[2023-03-27] MEDS: 0.9 % Sodium Chloride 1,000 ML 999 ML IV (12:57)
[2023-03-27 13:00] LABS: Urine Pregnancy NEGATIVE (NEGATIVE)
[2023-03-27 13:01] LABS: UPreg QC Valid YES
[2023-03-27 14:03] VITALS: BP 113/59; PULSE 56; RESP 18; O2SAT 100
[2023-03-27 14:04] LABS: Amphetamine Screen Urine Not Detected (Not Detect); Barbiturates, Urine Not Detected (Not Detect); Benzodiazepines Screen Urine Not Detected (Not Detect); Cannabinoid Screen Urine POSITIVE (Not Detect); Cocaine Screen Urine Not Detected (Not Detect); Fentanyl, urine POSITIVE (Not Detect); Opiate Screen Urine Not Detected (Not Detect); Phencyclidine Screen Urine Not Detected (Not Detect)
[2023-03-27] MEDS: LORazepam 1 MG TABLET PO (14:06)
[2023-03-27 14:10] LABS: Magnesium 2.1 mg/dL (1.6-2.6)
[2023-03-27 15:26] LABS: COVID-19 Test Negative (Negative); IDNOW Serial# 08D9AD1C
[2023-03-27 15:36] LABS: IDNOW Serial# BCCEAD1C; Influenza A Negative (Negative); Influenza B2 Negative (Negative)
[2023-03-27 16:03] LABS: CDiff Gene PCR POSITIVE (Negative)
[2023-03-27 16:31] LABS: CDIFF Internal ctrl Dots and bkg OK (V)
[2023-03-27] MEDS: vancomycin HCL 125 MG CAPSULE PO (16:31)
[2023-03-27 16:38] LABS: CDiff Toxin Negative (Negative)
[2023-03-28 13:19] LABS: Adenovirus F 40/41 Not Detected (Not Detect.); Astrovirus Not Detected (Not Detect.); Campylobacter Not Detected (Not Detect.); Cryptosporidium Not Detected (Not Detect.); Cyclospora cayetanensis Not Detected (Not Detect.); E. coli EAEC Not Detected (Not Detect.); E. coli EPEC Not Detected (Not Detect.); E. coli ETEC Not Detected (Not Detect.); E. coli STEC Not Detected (Not Detect.); Entamoeba histolytica Not Detected (Not Detect.); Giardia lamblia Not Detected (Not Detect.); Norovirus GI/GII Not Detected (Not Detect.); Plesiomonas shigelloides Not Detected (Not Detect.); Rotavirus A Not Detected (Not Detect.); Salmonella Not Detected (Not Detect.); Sapovirus Not Detected (Not Detect.); Shigella sp./EIEC Not Detected (Not Detect.); Vibrio Not Detected (Not Detect.); Vibrio Cholerae Not Detected (Not Detect.); Yersinia enterocolitica Not Detected (Not Detect.)
== END 2023-03-27 16:39 | disposition home or self-care (01) ==
PROVIDERS: Nurse Practitioner Family; Physician Assistant; Emergency Provider Emergency Medicine
DX: A04.72 Enterocolitis due to Clostridium difficile, not specified as recurrent (principal); Z20.822 Contact with and (suspected) exposure to COVID-19; F17.210 Nicotine dependence, cigarettes, uncomplicated; F12.90 Cannabis use, unspecified, uncomplicated; Z79.899 Other long term (current) drug therapy
CPT/HCPCS: 36415; 80053; 80307; 81003; 81025; 83690; 83735; 85025; 87324; 87493; 87502; 87507; 87635; 96360; 99284

== ENCOUNTER 2023-03-28 17:40 | Emergency (ER) | payer MEDICARE, MEDICAID, SELFPAY | END 2023-03-28 20:29 | disposition left against medical advice (07) | LOC: HO.ED 20:10 | PROVIDERS: Emergency Provider Emergency Medicine | DX: R53.1 Weakness (principal) ==

== ENCOUNTER 2023-04-17 23:14 | Emergency (ER) | payer MEDICARE, MEDICAID, SELFPAY ==
[2023-04-17 23:21] VITALS: BP 117/82; PULSE 109; RESP 18; TEMP 36.4; O2SAT 100; BMI 31.2
[2023-04-17 23:41] LABS: MANUAL DIFF FLAG NO
[2023-04-17 23:49] LABS: Basophils Absolute Auto 0.1 X10*3/uL (0.0-0.2); Basophils Percent Auto 0.6 % (0-2); Eosinophils Absolute Auto 0.1 X10*3/uL (0.0-0.4); Eosinophils Percent Auto 1.5 % (0-4); Hemoglobin 12.2 g/dl (12.0-16.0); Imm Gran Abs Auto 0.01 X10*3/uL (0.00-0.03); Imm Gran Pct Auto 0.1 % (0.0-0.4); Lymphocytes Absolute Auto 3.9 X10*3/uL (1.2-4.9); Lymphocytes Percent Auto 46.3 % (20-40); Mean Corpuscular Hemoglobin 28.3 pg (27.0-33.0); Mean Corpuscular Volume 85.8 fL (80.0-98.0); Mean Platelet Volume 11.7 fL (9.4-12.3); Monocytes Absolute Auto 0.4 X10*3/uL (0.1-1.2); Monocytes Percent Auto 4.8 % (2-11); Neutrophils Absolute Auto 3.9 x10*3/uL (2.0-8.3); Neutrophils Percent Auto 46.7 % (45-73); Platelet Count 281 X10*3/uL (160-400); Red Blood Count 4.31 X10*6/uL (4.20-5.50); Red Cell Distribution Width 12.7 % (11.0-16.0); White Blood Count 8.4 X10*3/uL (4.8-10.8)
[2023-04-18 00:07] LABS: Alanine Aminotransferase 11 U/L (0-31); Albumin Level 4.1 g/dL (3.5-5.0); Alkaline Phosphatase 46 U/L (39-117); Anion Gap 16 (12-20); Aspartate Amino Transferase 12 U/L (5-31); Bilirubin Direct < 0.2 mg/dL (0.0-0.5); Bilirubin Total 0.2 mg/dL (0.0-1.0); Blood Urea Nitrogen 13 mg/dL (9-16); Calcium 9.5 mg/dL (8.4-10.2); Carbon Dioxide 23 mmol/L (22-29); Chloride 105 mmol/L (96-108); Creatinine Clr Calc Pharmacy 98.9; Estimated Glomerular Filt Rate > 60; Glucose Random 95 mg/dL (60-115); Lipase 17 U/L (8-78); Potassium 4.1 mmol/L (3.3-5.1); Sodium 140 mmol/L (135-145); Total Protein 7.5 g/dL (6.5-8.0)
[2023-04-18 00:52] VITALS: BP 125/92; PULSE 88; RESP 16; TEMP 37; O2SAT 99
[2023-04-18 01:07] LABS: Appearance Urine Clear; Color Urine Yellow; Glucose Urine UA Negative (Negative); Leukocyte Esterase Urine Negative (Negative); Nitrite Urine Negative (Negative); PH 5.5 (5.0-9.0); Specific Gravity - Urine 1.025 (1.005-1.025); Urine Blood Negative (Negative); Urine Ketones Negative (Negative); Urine Protein Negative (Neg-Trace)
[2023-04-18 01:08] LABS: UPreg QC Valid YES; Urine Pregnancy NEGATIVE (NEGATIVE)
--- NOTE | 2023-04-18 01:31 | ED.ABDPAIN ---
HPI - Abdominal Pain General Chief Complaint: Abdominal Pain Stated Complaint: ?C diff Time Seen by Provider: 04/18/23 01:18 Source: patient Mode of arrival: ambulatory Limitations: no limitations History of Present Illness HPI narrative: Patient comes to the emergency room complaining of abdominal cramping, intermittent diarrhea and soft stools. Patient was diagnosed with C diff approximately 1 month ago. Patient states that she had the same symptoms. However, the last time she had more diarrhea than this time. Patient denies URI or UTI symptoms, no chest pain or shortness of breath. No blood in the stool. Related Data Home Medications Medication Instructions Recorded Confirmed trazodone 50 mg tablet 50 mg PO BEDTIME PRN 10/27/21 venlafaxine 75 mg capsule,extended 75 mg PO DAILY 10/27/21 release 24 hr (Effexor XR) Previous Rx's Medication Instructions Recorded gabapentin 600 mg tablet 600 mg PO TID 30 days #90 tabs 10/27/21 tizanidine 4 mg tablet 4 mg PO Q8H PRN muscle spasticity 10/27/21 30 days #90 tabs acetaminophen 500 mg tablet 1,000 mg PO QID PRN pain #30 tabs 01/06/22 amoxicillin 875 mg-potassium 1 tab PO BID 7 days #14 tabs 01/06/22 clavulanate 125 mg tablet ibuprofen 600 mg tablet 600 mg PO Q6H PRN pain #20 tabs 01/06/22 oxycodone 5 mg tablet 5 mg PO Q6H PRN pain #14 tabs 01/06/22 lorazepam 1 mg tablet (Ativan) 1 mg PO BID PRN anxiety #20 tabs 12/21/22 vancomycin 125 mg capsule 125 mg PO QID 10 days #40 caps 03/27/23 dicyclomine 20 mg tablet 20 mg PO QID #30 tabs 04/18/23 lorazepam 0.5 mg tablet (Ativan) 0.5 mg PO TID PRN anxiety #6 tabs 04/18/23 vancomycin 125 mg capsule 125 mg PO QID 10 days #40 caps 04/18/23 Allergies Allergy/AdvReac Type Severity Reaction Status Date / Time bee pollen [BEE STINGS] Allergy Unknown ANAPHYLAXIS Verified 03/27/23 11:54 bee strings Allergy Unknown sweling Uncoded 03/27/23 11:54 Review of Systems Review of Systems Constitutional : No Weight loss, No Fever, No Chills, No Night Sweats, No Fatigue, No Malaise ENT/Mouth : No Hearing loss, No Ear Pain, No Nasal Congestion, No Sinus Pain, No Hoarseness, No sore throat, No Rhinorrhea, No Swallowing Difficulty Eyes: No Eye Pain, No Swelling, No Redness, No Foreign Body, No Discharge, No Vision Changes Cardiovascular : No Chest Pain, No SOB, No Dyspnea on Exertion, No Orthopnea, No Edema, No Palpitations Respiratory : No Cough, No Sputum, No Wheezing, No Smoke Exposure, No Dyspnea Gastrointestinal : No Nausea, No Vomiting, complaining of intermittent yellowish diarrhea Genitourinary : no irregular bleeding, No Dysuria, No Urinary Frequency, No Hematuria, No Urinary Incontinence, No Urgency, No Flank Pain, No Urinary Flow Changes, No Hesitancy Musculoskeletal : No joint pain, No Myalgias, No Joint Swelling Skin : No Skin Lesions, No rash Neuro : No Weakness, No Numbness, No Paresthesias, No Loss of Consciousness, No Dizziness, No Headache Psych : Patient complaining of having a panic attack at this time Heme/Lymph: No Bruising, No Bleeding,No Lymphadenopathy Endocrine : No Polyuria, No Polydipsia, No Temperature Intolerance PMFSH Past Medical History Medical History Fibromyalgia HGSIL (high grade squamous intraepithelial lesion) on Pap smear of cervix Hx LEEP (loop electrosurgical excision procedure), cervix, Hydradenitis Major depression Marijuana use Obesity Sacroiliac joint dysfunction Sacroiliitis Scoliosis associated with other condition 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 Stress incontinence Social History Social History Alcohol intake: never Patient Tobacco Use Status: Current everyday Tobacco user Tobacco use type: Cigarette Cigarettes Per Day: 10 Smoked in Last 30 Days: Yes Use of substances other than those prescribed or required for medical reasons: Yes Substance Use Type: Marijuana Advance Directives: No Advance Directives Information Provided: Yes Patient : No Physical Exam ED Vital Signs: Vital Signs - 24 hr 04/17/23 23:21 04/18/23 00:52 Temperature 97.5 F 98.6 F Pulse Rate 109 H 88 Respiratory Rate 18 16 Blood Pressure 117/82 125/92 H Pulse Oximetry 100 99 Oxygen Delivery Method Room Air Room Air BMI result Body Mass Index 31.2 Const Other: Appearance: Alert. Oriented X3. No acute distress. Eyes: Pupils equal, round and reactive to light. ENT: Pharynx normal. Neck: Normal inspection. Neck supple. No lymph nodes noted. No crepitus CVS: Normal heart rate and rhythm. Pulses normal. Normal S1 and S2 Respiratory: No respiratory distress. Breath sounds normal. No Wheezing. No rales Abdomen: Soft and nontender. No rigidity. No distention. Skin: Skin warm and dry. Normal skin color. Normal skin turgor. Extremities: No lower extremity edema. No Lacerations. No Rash Neuro: Oriented X 3. No motor deficit. No sensory deficit. Moving all extremities. No slurred speech. CN 2 through 12 grossly intact Psych: calm, cooperative, very anxious Medical Decision Making Medical Decision Making [facility] Narrative: -I discussed with the patient that her white blood cell count is normal. Patient has been here in the emergency room several hours and has been unable to provide a stool sample to check for C diff. However, I discussed with the patient that even if she would not have diarrhea and we will test the stool, very likely it would be positive for C diff and it would stay so for several weeks -patient has an appointment pending with Gastroenterology. -patient requesting p.o. Ativan for her panic attack. Which was given to her. -I discussed with the patient that given that she has recurrent symptoms, we will go ahead and give her 1 more treatment of p.o. vancomycin. Differential Diagnosis Differential Diagnoses: The differential diagnosis associated with the presentation includes (IBS, C diff, gastritis, gastroenteritis) Lab Data [facility] Lab Attestation statement: I reviewed the patient's lab results. 04/17/23 23:33 04/17/23 23:33 Labs: Lab Results 04/17/23 04/17/23 04/18/23 Range/Units 23:33 23:33 01:00 WBC 8.4 (4.8-10.8) X10*3/uL RBC 4.31 (4.20-5.50) X10*6/uL Hgb 12.2 (12.0-16.0) g/dl Hct 37.0 (37.0-47.0) % MCV 85.8 (80.0-98.0) fL MCH 28.3 (27.0-33.0) pg MCHC 33.0 (31.0-35.0) g/dl RDW 12.7 (11.0-16.0) % Plt Count 281 (160-400) X10*3/uL MPV 11.7 (9.4-12.3) fL Immature Gran % (Auto) 0.1 (0.0-0.4) % Neut % (Auto) 46.7 (45-73) % Lymph % (Auto) 46.3 H (20-40) % [place] % (Auto) 4.8 (2-11) % Eos % (Auto) 1.5 (0-4) % Baso % (Auto) 0.6 (0-2) % Lymph # (Auto) 3.9 (1.2-4.9) X10*3/uL [place] # (Auto) 0.4 (0.1-1.2) X10*3/uL Eos # (Auto) 0.1 (0.0-0.4) X10*3/uL Baso # (Auto) 0.1 (0.0-0.2) X10*3/uL Abs Immat Gran (auto) 0.01 (0.00-0.03) X10*3/uL Absolute Neuts (auto) 3.9 (2.0-8.3) x10*3/uL Absolute Nucleated RBC 0.000 (0.0-0.012) X10*3/uL Nucleated RBC % (auto) 0.0 (0.0-0.2) /100WBC Sodium 140 (135-145) mmol/L Potassium 4.1 (3.3-5.1) mmol/L Chloride 105 (96-108) mmol/L Carbon Dioxide 23 (22-29) mmol/L Anion Gap 16 (12-20) BUN 13 (9-16) mg/dL Creatinine 0.92 (0.5-1.4) mg/dL Estim Creat Clear Calc 98.9 Estimated GFR > 60 Random Glucose 95 (60-115) mg/dL Calcium 9.5 (8.4-10.2) mg/dL Total Bilirubin 0.2 (0.0-1.0) mg/dL Direct Bilirubin < 0.2 (0.0-0.5) mg/dL AST 12 (5-31) U/L ALT 11 (0-31) U/L Alkaline Phosphatase 46 (39-117) U/L Total Protein 7.5 (6.5-8.0) g/dL Albumin 4.1 (3.5-5.0) g/dL Lipase 17 (8-78) U/L Urine Color Yellow Urine Appearance Clear Urine pH 5.5 (5.0-9.0) Ur Specific [place] 1.025 (1.005-1.025) Urine Protein Negative (Neg-Trace) mg/dL Urine Glucose (UA) Negative (Negative) mg/dL Urine Ketones Negative (Negative) mg/dL Urine Blood Negative (Negative) Urine Nitrite Negative (Negative) Ur Leukocyte Esterase Negative (Negative) Urine Test (NEGATIVE) 04/18/23 Range/Units 01:00 WBC (4.8-10.8) X10*3/uL RBC (4.20-5.50) X10*6/uL Hgb (12.0-16.0) g/dl Hct (37.0-47.0) % MCV (80.0-98.0) fL MCH (27.0-33.0) pg MCHC (31.0-35.0) g/dl RDW (11.0-16.0) % Plt Count (160-400) X10*3/uL MPV (9.4-12.3) fL Immature Gran % (Auto) (0.0-0.4) % Neut % (Auto) (45-73) % Lymph % (Auto) (20-40) % [place] % (Auto) (2-11) % Eos % (Auto) (0-4) % Baso % (Auto) (0-2) % Lymph # (Auto) (1.2-4.9) X10*3/uL [place] # (Auto) (0.1-1.2) X10*3/uL Eos # (Auto) (0.0-0.4) X10*3/uL Baso # (Auto) (0.0-0.2) X10*3/uL Abs Immat Gran (auto) (0.00-0.03) X10*3/uL Absolute Neuts (auto) (2.0-8.3) x10*3/uL Absolute Nucleated RBC (0.0-0.012) X10*3/uL Nucleated RBC % (auto) (0.0-0.2) /100WBC Sodium (135-145) mmol/L Potassium (3.3-5.1) mmol/L Chloride (96-108) mmol/L Carbon Dioxide (22-29) mmol/L Anion Gap (12-20) BUN (9-16) mg/dL Creatinine (0.5-1.4) mg/dL Estim Creat Clear Calc Estimated GFR Random Glucose (60-115) mg/dL Calcium (8.4-10.2) mg/dL Total Bilirubin (0.0-1.0) mg/dL Direct Bilirubin (0.0-0.5) mg/dL AST (5-31) U/L ALT (0-31) U/L Alkaline Phosphatase (39-117) U/L Total Protein (6.5-8.0) g/dL Albumin (3.5-5.0) g/dL Lipase (8-78) U/L Urine Color Urine Appearance Urine pH (5.0-9.0) Ur Specific [place] (1.005-1.025) Urine Protein (Neg-Trace) mg/dL Urine Glucose (UA) (Negative) mg/dL Urine Ketones (Negative) mg/dL Urine Blood (Negative) Urine Nitrite (Negative) Ur Leukocyte Esterase (Negative) Urine Test NEGATIVE (NEGATIVE) Discharge Plan Discharge Clinical Impression: Abdominal pain, Anxiety Patient Disposition: Home, Self-Care Instructions: Abdominal Pain (ED) Additional Instructions: Please follow-up with your primary care physician tomorrow. If you have any worsening or new symptoms, please return to the emergency room or call 911 Prescriptions: New dicyclomine 20 mg tablet 20 mg PO QID Qty: 30 0RF vancomycin 125 mg capsule 125 mg PO QID 10 Days Qty: 40 0RF lorazepam [Ativan] 0.5 mg tablet 0.5 mg PO TID PRN (Reason: anxiety) Qty: 6 0RF No Action lorazepam [Ativan] 1 mg tablet 1 mg PO BID PRN (Reason: anxiety) Qty: 20 0RF amoxicillin-pot clavulanate 875-125 mg tablet 1 tab PO BID 7 Days Qty: 14 0RF acetaminophen 500 mg tablet 1,000 mg PO QID PRN (Reason: pain) Qty: 30 0RF ibuprofen 600 mg tablet 600 mg PO Q6H PRN (Reason: pain) Qty: 20 0RF oxycodone 5 mg tablet 5 mg PO Q6H PRN (Reason: pain) Qty: 14 0RF Rx Instructions: Narcotic, no driving for 6 hours after taking this medication vancomycin 125 mg capsule 125 mg PO QID 10 Days Qty: 40 0RF venlafaxine [Effexor XR] 75 mg capsule,extended release 24hr 75 mg PO DAILY trazodone 50 mg tablet 50 mg PO BEDTIME PRN gabapentin 600 mg tablet 600 mg PO TID 30 Days Qty: 90 8RF tizanidine 4 mg tablet 4 mg PO Q8H PRN (Reason: muscle spasticity) 30 Days Qty: 90 8RF
[2023-04-18] MEDS: LORazepam 1 MG TABLET PO (01:48)
== END 2023-04-18 01:53 | disposition home or self-care (01) ==
PROVIDERS: Emergency Provider Emergency Medicine
DX: R10.9 Unspecified abdominal pain (principal); F41.9 Anxiety disorder, unspecified; F17.210 Nicotine dependence, cigarettes, uncomplicated; F12.90 Cannabis use, unspecified, uncomplicated; Z79.899 Other long term (current) drug therapy
CPT/HCPCS: 36415; 80053; 81003; 81025; 82248; 83690; 85025; 99283; 99284

== ENCOUNTER 2023-04-20 15:46 | Emergency (ER) | payer MEDICARE, MEDICAID, SELFPAY ==
[2023-04-20 15:52] VITALS: BP 106/50; PULSE 84; RESP 18; TEMP 36.6; O2SAT 99; BMI 29.5
--- NOTE | 2023-04-20 16:04 | ECG_ITS ---
Test Reason : PALPITATIONS Blood Pressure : / mmHG Vent. Rate : 073 BPM Atrial Rate : 073 BPM P-R Int : 154 ms QRS Dur : 088 ms QT Int : 378 ms P-R-T Axes : 062 059 034 degrees QTc Int : 416 ms Normal sinus rhythm Normal ECG No previous ECGs available Referred By: Generic ED Physician Electronically Signed By:Gerry De Leon
--- NOTE | 2023-04-20 18:18 | ED_ITS ---
HPI - Anxiety General Chief Complaint: Anxiety Stated Complaint: panic attack/weakness Time Seen by Provider: 04/20/23 18:17 Source: patient Mode of arrival: ambulatory Limitations: no limitations History of Present Illness HPI narrative: Patient was given rx for ativan #6 tablets on 04/18. She went to pharmacy and they do not have this available medication. She is here for alternative. Reports continued anxiety Related Data Home Medications Medication Instructions Recorded Confirmed trazodone 50 mg tablet 50 mg PO BEDTIME PRN 10/27/21 venlafaxine 75 mg capsule,extended 75 mg PO DAILY 10/27/21 release 24 hr (Effexor XR) Previous Rx's Medication Instructions Recorded gabapentin 600 mg tablet 600 mg PO TID 30 days #90 tabs 10/27/21 tizanidine 4 mg tablet 4 mg PO Q8H PRN muscle spasticity 10/27/21 30 days #90 tabs acetaminophen 500 mg tablet 1,000 mg PO QID PRN pain #30 tabs 01/06/22 amoxicillin 875 mg-potassium 1 tab PO BID 7 days #14 tabs 01/06/22 clavulanate 125 mg tablet ibuprofen 600 mg tablet 600 mg PO Q6H PRN pain #20 tabs 01/06/22 oxycodone 5 mg tablet 5 mg PO Q6H PRN pain #14 tabs 01/06/22 lorazepam 1 mg tablet (Ativan) 1 mg PO BID PRN anxiety #20 tabs 12/21/22 vancomycin 125 mg capsule 125 mg PO QID 10 days #40 caps 03/27/23 dicyclomine 20 mg tablet 20 mg PO QID #30 tabs 04/18/23 lorazepam 0.5 mg tablet (Ativan) 0.5 mg PO TID PRN anxiety #6 tabs 04/18/23 vancomycin 125 mg capsule 125 mg PO QID 10 days #40 caps 04/18/23 lorazepam 1 mg tablet 1 mg PO DAILY PRN anxiety #3 tabs 04/20/23 Allergies Allergy/AdvReac Type Severity Reaction Status Date / Time bee pollen [BEE STINGS] Allergy Unknown ANAPHYLAXIS Verified 03/27/23 11:54 bee strings Allergy Unknown sweling Uncoded 03/27/23 11:54 Review of Systems Review of Systems: Yes all other systems are reviewed and are negative Constitutional: Constitutional: Reports no additional constitutional complaints, Denies body ache(s), Denies chills, Denies fever(s), Denies headache(s) and Denies weakness Eyes: Eyes: Reports no additional eye complaints and Denies change in vision ENT: Reports system reviewed and no additional complaints, except as documented, Denies dizziness, Denies headache(s), Denies nasal congestion, Denies nasal discharge and Denies neck pain Cardiovascular: Cardiovascular: Reports no additional cardiovascular complaints, Denies chest pain, Denies leg edema and Denies dyspnea Respiratory: Respiratory: Reports no additional respiratory complaints, Denies cough and Denies dyspnea Gastrointestinal: Gastrointestinal: Reports no additional gastrointestinal complaints, Denies abdominal pain, Denies diarrhea, Denies nausea and Denies vomiting Genitourinary: Genitourinary: Reports no additional female genitourinary complaints and Denies urinary incontinence Musculoskeletal: Musculoskeletal: Reports no additional musculoskeletal complaints, Denies back pain, Denies arthralgias, Denies joint swelling, Denies neck pain, Denies numbness and Denies tingling Integumentary/Breasts: Skin/Breast: Reports system reviewed and no additional complaints, except as docu and Denies rash Neurologic: Reports system reviewed and no additional complaints, except as documented, Denies Abnormal speech present, Denies dizziness, Denies headache(s), Denies numbness, Denies tingling and Denies weakness Psychiatric: Psychiatric: Reports anxiety PMFSH Past Medical History Attestation statement: The following information was validated with the patient. 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 Stress incontinence Social History Social History Alcohol intake: never Patient Tobacco Use Status: Current everyday Tobacco user Tobacco use type: Cigarette Cigarettes Per Day: 10 Substance Use Type: Marijuana Advance Directives: No Advance Directives Information Provided: No Physical Exam Vital Signs: Vital Signs: Last Vital Signs Temp 97.9 F 04/20/23 15:52 Pulse 84 04/20/23 15:52 Resp 18 04/20/23 15:52 BP 106/50 L 04/20/23 15:52 Pulse Ox 99 04/20/23 15:52 O2 Del Method Room Air 04/20/23 15:52 BMI result Body Mass Index 29.5 Const: General: cooperative, healthy appearing, comfortable and no acute distress Orientation/consciousness: patient oriented x3 Limitations: no limitations HEENT: Head: Yes normal to inspection Ears: hearing grossly normal bilaterally General nose exam: Normal external nose present Face and sinus: Yes normal facial exam Mouth: Normal oral and palatal mucosa present Throat: Yes posterior oropharynx normal Eyes: General: appearance normal, both eyes and all related structures Pupils: Equal, round and reactive pupils present Neck: Neck: Yes normal visual inspection Chest: Chest palpation & inspection: normal inspection of the chest Resp: Effort & Inspection: normal respiratory effort Auscultation: clear to auscultation bilaterally Cardio: Rate: regular rate Rhythm: regular rhythm Peripheral pulses: Peripheral pulses 2+ throughout GI: Inspection: Yes normal to inspection Palpation (GI): Soft to palpation and nontender Auscultation: normal bowel sounds Back/Spine/Pelvis: Thoracic/Lumbar Spine: thoracic and lumbar spine normal to inspection Skin: General skin exam: no rashes or lesions noted Neuro: General: patient oriented x3, no focal motor deficits and normal sensation to monofilament Cranial nerves: Yes Equal, round and reactive pupils present Cognition (Neuro): normal cognition Speech: No Abnormal speech present Gait exam (Neuro): Normal gait present Motor exam (neuro): 5/5 motor strength present throughout Extrem: General: Yes normal to inspection Medical Decision Making Medical Decision Making MDM Narrative: 32 yo female with history of anxiety here seeking new prescription for anxiety. Was seen here 04/18 and given rx for 6 tablets of 0.5mg ativan. Pharmacy did not have this available. Patient here for alternative. I called and spoke to the patient's pharmacy which is [facility] on [facility]. They do not have 0.5 mg tablets available and this is on back order for all [facility]. They do have 1 mg tablets available which can be broken in half. Therefore I will give the patient 3 tablets of 1 mg to take at home as needed. Reviewed worrisome signs and symptoms of when to return to the emergency room. Comfortable plan for discharge home. Differential Diagnosis Differential Diagnoses: The differential diagnosis associated with the presentation includes anxiety Independent Interpretation I performed an independent interpretation of an: EKG Interpretation: I independently reviewed the EKG and agreed with the report normal sinus rhythm with a rate of 73, normal IL, normal QRS, normal QT Discharge Plan Discharge Clinical Impression: Acute anxiety Patient Disposition: Home, Self-Care Instructions: Anxiety (ED) Prescriptions: New lorazepam 1 mg tablet 1 mg PO DAILY PRN (Reason: anxiety) Qty: 3 0RF Rx Instructions: break the tablet in half and take half a tablet every 8 hrs as needed No Action lorazepam [Ativan] 1 mg tablet 1 mg PO BID PRN (Reason: anxiety) Qty: 20 0RF amoxicillin-pot clavulanate 875-125 mg tablet 1 tab PO BID 7 Days Qty: 14 0RF acetaminophen 500 mg tablet 1,000 mg PO QID PRN (Reason: pain) Qty: 30 0RF ibuprofen 600 mg tablet 600 mg PO Q6H PRN (Reason: pain) Qty: 20 0RF oxycodone 5 mg tablet 5 mg PO Q6H PRN (Reason: pain) Qty: 14 0RF Rx Instructions: Narcotic, no driving for 6 hours after taking this medication vancomycin 125 mg capsule 125 mg PO QID 10 Days Qty: 40 0RF dicyclomine 20 mg tablet 20 mg PO QID Qty: 30 0RF vancomycin 125 mg capsule 125 mg PO QID 10 Days Qty: 40 0RF lorazepam [Ativan] 0.5 mg tablet 0.5 mg PO TID PRN (Reason: anxiety) Qty: 6 0RF venlafaxine [Effexor XR] 75 mg capsule,extended release 24hr 75 mg PO DAILY trazodone 50 mg tablet 50 mg PO BEDTIME PRN gabapentin 600 mg tablet 600 mg PO TID 30 Days Qty: 90 8RF tizanidine 4 mg tablet 4 mg PO Q8H PRN (Reason: muscle spasticity) 30 Days Qty: 90 8RF Referrals: Physician,Unknown J [Primary Care Provider] -
== END 2023-04-20 18:25 | disposition home or self-care (01) ==
PROVIDERS: Emergency Provider Student in an Organized Health Care Education/Training Program
DX: F41.1 Generalized anxiety disorder (principal); F43.0 Acute stress reaction; R00.2 Palpitations; F41.0 Panic disorder [episodic paroxysmal anxiety]; Z79.899 Other long term (current) drug therapy
CPT/HCPCS: 93005; 99283

== ENCOUNTER → 2023-04-20 16:04 | Outpatient (BNV) | payer MEDICARE, MEDICAID, SELFPAY | PROVIDERS: Emergency Provider Student in an Organized Health Care Education/Training Program; Visit Provider Internal Medicine Cardiovascular Disease | DX: R00.2 Palpitations (principal) | CPT/HCPCS: 93010 ==

== ENCOUNTER 2024-03-27 17:16 | Emergency (ER) | payer MEDICARE, MEDICAID, SELFPAY ==
--- NOTE | ~2024-03-27 | CT_ITS ---
EXAMINATION: CT HEAD WITHOUT CONTRAST CT FACE WITHOUT CONTRAST CT CERVICAL SPINE WITHOUT CONTRAST CLINICAL INFORMATION: Pain. Injury. COMPARISON: No relevant prior imaging. TECHNIQUE: Physician General Practice images were obtained. CT imaging of the head, face, and cervical spine was performed without contrast. Data was reformatted into multiplanar images at the acquisition workstation. This CT examination was performed using dose optimization techniques as appropriate, including one or more of the following: Automated exposure control, iterative reconstruction, and adjustment of technique factors (mA and/or kVp) according to patient size (this includes techniques or standardized protocols for targeted exams where dose is matched to indication/reason for exam). Fleischner Society criteria for the followup of incidental pulmonary nodules was implemented if appropriate. DLP: 1561 mGy-cm. FINDINGS: Head: There is no acute intracranial hemorrhage or abnormal extra-axial collection. No intracranial mass effect or midline shift. Lateral and third ventricles are normal. No hydrocephalus. Tucker-white matter differentiation is preserved and there is no evidence of an acute territorial infarct. The calvarium and skull base are intact. Mastoid air cells and middle ear cavities are well aerated. Face: Nasal bones, zygomatic arches, and pterygoid processes are intact. No evidence of acute facial fracture. The mandible is intact. Temporomandibular joints are symmetric. There is a retention cyst within the M1 of the left posterior ethmoid air cells. Otherwise no active paranasal sinus disease. All of the major paranasal sinus drainage pathways are patent. The nasal septum deviates to the left. Globes and extraocular muscles are symmetric. No abnormal retrobulbar mass or inflammation. Lamina papyracea and orbital floors are intact. Cervical spine: There is nonspecific reversal of the cervical lordosis. Vertebral heights are preserved. No acute fracture. There is loss of intervertebral disc height with associated sclerotic degenerative endplate changes and hypertrophic disc osteophyte spurring at the levels of C5-C6 and C6-C7. Canal patency is not well assessed on this examination due to inherent limitations of CT without intrathecal contrast. There is at least mild canal stenosis at the level of C5-C6. There are a few scattered symmetrically inserted nonspecific cervical lymph nodes. Visualized soft tissues of the neck are otherwise normal. Lung apices are clear. CT/CT head/brain wo IV con IMPRESSION: No acute intracranial hemorrhage. No acute facial fracture. No acute cervical spine fracture. There is multilevel degenerative spondylosis of the cervical spine with at least mild canal stenosis at the level of C5-C6. If there are clinical symptoms of compressive myelopathy then a dedicated cervical spine MRI can be obtained for better anatomic characterization of the cord and canal.
[2024-03-27 17:30] VITALS: BP 148/90; PULSE 107; RESP 18; TEMP 36.8; O2SAT 100; BMI 36.6
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
[2024-03-27 21:33] VITALS: BP 118/77; PULSE 98; RESP 20; TEMP 37.1; O2SAT 100
[2024-03-27 21:58] VITALS: BP 118/77; PULSE 98; RESP 20; TEMP 37.1; O2SAT 100
== END 2024-03-27 21:58 | disposition home or self-care (01) ==
PROVIDERS: Emergency Provider Internal Medicine
DX: S06.0X0A Concussion without loss of consciousness, initial encounter (principal); M54.2 Cervicalgia; R51.9 Headache, unspecified; Y04.2XXA Assault by strike against or bumped into by another person, initial encounter; Y93.9 Activity, unspecified; Y92.9 Unspecified place or not applicable; Y99.8 Other external cause status; Z79.899 Other long term (current) drug therapy
CPT/HCPCS: 70450; 70486; 72125; 99282; 99284

== ENCOUNTER 2025-04-19 17:01 | Emergency (ER) | payer MEDICARE, MEDICAID, SELFPAY ==
[2025-04-19 17:06] VITALS: BP 133/85; PULSE 95; RESP 16; TEMP 36.8; O2SAT 98; BMI 41.3
--- NOTE | 2025-04-19 17:07 | ED.GENADULT ---
HPI - General Adult General Chief complaint: Ear Problems Stated complaint: ? ear infection, ? infected tooth Time Seen by Provider: 04/19/25 19:51 Related Data Home Medications ?Medication ?Instructions ?Recorded ?Confirmed trazodone 50 mg tablet 50 mg PO BEDTIME PRN 10/27/21 venlafaxine 75 mg capsule,extended 75 mg PO DAILY 10/27/21 release 24 hr (Effexor XR) Previous Rx's ?Medication ?Instructions ?Recorded gabapentin 600 mg tablet 600 mg PO TID 30 days #90 tabs 10/27/21 tizanidine 4 mg tablet 4 mg PO Q8H PRN muscle spasticity 10/27/21 30 days #90 tabs acetaminophen 500 mg tablet 1,000 mg (2 x 500 mg) PO QID PRN 01/06/22 pain #30 tabs amoxicillin 875 mg-potassium 1 tab PO BID 7 days #14 tabs 01/06/22 clavulanate 125 mg tablet ibuprofen 600 mg tablet 600 mg PO Q6H PRN pain #20 tabs 01/06/22 oxycodone 5 mg tablet 5 mg PO Q6H PRN pain #14 tabs 01/06/22 lorazepam 1 mg tablet (Ativan) 1 mg PO BID PRN anxiety #20 tabs 12/21/22 vancomycin 125 mg capsule 125 mg PO QID 10 days #40 caps 03/27/23 dicyclomine 20 mg tablet 20 mg PO QID #30 tabs 04/18/23 lorazepam 0.5 mg tablet (Ativan) 0.5 mg PO TID PRN anxiety #6 tabs 04/18/23 vancomycin 125 mg capsule 125 mg PO QID 10 days #40 caps 04/18/23 lorazepam 1 mg tablet 1 mg PO DAILY PRN anxiety #3 tabs 04/20/23 Allergies Allergy/AdvReac Type Severity Reaction Status Date / Time bee pollen (BEE STINGS) Allergy Unknown ANAPHYLAXIS Verified 04/19/25 17:10 bee strings Allergy Unknown sweling Uncoded 03/27/24 17:39 PMFSH Past Medical History Medical History Hx LEEP (loop electrosurgical excision procedure), cervix, Sacroiliitis 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 Fibromyalgia Scoliosis associated with other condition Sacroiliac joint dysfunction Major depression Stress incontinence HGSIL (high grade squamous intraepithelial lesion) on Pap smear of cervix Hydradenitis Obesity Marijuana use Social History Social History Alcohol intake: never Patient Tobacco Use Status: Current everyday Tobacco user Tobacco use type: Cigarette Cigarettes Per Day: 10 Substance Use Type: Marijuana Advance Directives: No Advance Directives Information Provided: No Do you have a plan to hurt others: No Plan Physical Exam ED Vital Signs: BMI result Body Mass Index 41.3 Course Course Course Narrative: This is a rapid medical exam performed by Mo Yung NP: Additional HPI, ROS, PE not included below will be deferred to primary provider. Patient is a 34-year-old female presenting with complaint of bilat ear pain, R>L, and right upper jaw pain. Has had the ear pain for months. Seen at [facility] and prescribed amox, but did not take right away because she was having a procedure done and has hx of C. diff. Started abx a few days after procedure, completed 5 days ago, still having pain. Has had the jaw pain x 1 month. Mild erythema to R TM, + mastoid tenderness. Also complaining of burning abd pain. Plan: labs Medical Decision Making Lab Data 04/19/25 17:45 04/19/25 17:45 Labs: Lab Results 04/19/25 Range/Units 17:45 WBC 8.3 (4.8-10.8) X10*3/uL RBC 4.53 (4.20-5.50) X10*6/uL Hgb 12.6 (12.0-16.0) g/dl Hct 37.5 (37.0-47.0) % MCV 82.8 (80.0-98.0) fL MCH 27.8 (27.0-33.0) pg MCHC 33.6 (31.0-35.0) g/dl RDW 14.7 (11.0-16.0) % Plt Count 304 (160-400) X10*3/uL MPV 10.3 (9.4-12.3) fL Immature Gran % (Auto) 0.2 (0.0-0.4) % Neut % (Auto) 58.0 (45-73) % Lymph % (Auto) 32.7 (20-40) % Weakley % (Auto) 6.5 (2-11) % Eos % (Auto) 1.8 (0-4) % Baso % (Auto) 0.8 (0-2) % Lymph # (Auto) 2.7 (1.2-4.9) X10*3/uL Weakley # (Auto) 0.5 (0.1-1.2) X10*3/uL Eos # (Auto) 0.2 (0.0-0.4) X10*3/uL Baso # (Auto) 0.1 (0.0-0.2) X10*3/uL Abs Immat Gran (auto) 0.02 (0.00-0.03) X10*3/uL Absolute Neuts (auto) 4.8 (2.0-8.3) x10*3/uL Absolute Nucleated RBC 0.000 (0.0-0.012) X10*3/uL Nucleated RBC % (auto) 0.0 (0.0-0.2) /100WBC Sodium 141 (135-145) mmol/L Potassium 4.0 (3.3-5.1) mmol/L Chloride 106 (96-108) mmol/L Carbon Dioxide 28 (22-29) mmol/L Anion Gap 11 L (12-20) BUN 11 (9-16) mg/dL Creatinine 0.98 (0.5-1.4) mg/dL Estim Creat Clear Calc 105.7 Estimated GFR > 60 Random Glucose 102 (60-115) mg/dL Calcium 9.7 (8.4-10.2) mg/dL Total Bilirubin 0.2 (0.0-1.0) mg/dL AST 24 (5-31) U/L ALT 33 H (0-31) U/L Alkaline Phosphatase 50 (39-117) U/L Total Protein 7.6 (6.5-8.0) g/dL Albumin 4.5 (3.5-5.0) g/dL Beta HCG, Quant < 2 mIU/mL Discharge Plan Discharge Clinical Impression: Diagnosis unknown Patient Disposition: Left W/O Completing Treatment Prescriptions: No Action lorazepam [Ativan] 1 mg tablet 1 mg PO BID PRN (Reason: anxiety) Qty: 20 0RF amoxicillin-pot clavulanate 875-125 mg tablet 1 tab PO BID 7 Days Qty: 14 0RF acetaminophen 500 mg tablet 1,000 mg PO QID PRN (Reason: pain) Qty: 30 0RF ibuprofen 600 mg tablet 600 mg PO Q6H PRN (Reason: pain) Qty: 20 0RF oxycodone 5 mg tablet 5 mg PO Q6H PRN (Reason: pain) Qty: 14 0RF Rx Instructions: Narcotic, no driving for 6 hours after taking this medication vancomycin 125 mg capsule 125 mg PO QID 10 Days Qty: 40 0RF dicyclomine 20 mg tablet 20 mg PO QID Qty: 30 0RF vancomycin 125 mg capsule 125 mg PO QID 10 Days Qty: 40 0RF lorazepam [Ativan] 0.5 mg tablet 0.5 mg PO TID PRN (Reason: anxiety) Qty: 6 0RF lorazepam 1 mg tablet 1 mg PO DAILY PRN (Reason: anxiety) Qty: 3 0RF Rx Instructions: break the tablet in half and take half a tablet every 8 hrs as needed venlafaxine [Effexor XR] 75 mg capsule,extended release 24hr 75 mg PO DAILY trazodone 50 mg tablet 50 mg PO BEDTIME PRN gabapentin 600 mg tablet 600 mg PO TID 30 Days Qty: 90 8RF tizanidine 4 mg tablet 4 mg PO Q8H PRN (Reason: muscle spasticity) 30 Days Qty: 90 8RF Discharge Date/Time: 04/21/25 07:36
[2025-04-19 17:49] LABS: MANUAL DIFF FLAG NO
[2025-04-19 17:50] LABS: Hematocrit 37.5 % (37.0-47.0); Hemoglobin 12.6 g/dl (12.0-16.0); Imm Gran Abs Auto 0.02 X10*3/uL (0.00-0.03); Imm Gran Pct Auto 0.2 % (0.0-0.4); Lymphocytes Absolute Auto 2.7 X10*3/uL (1.2-4.9); Mean Corpuscular HGB Conc 33.6 g/dl (31.0-35.0); Mean Corpuscular Hemoglobin 27.8 pg (27.0-33.0); Mean Corpuscular Volume 82.8 fL (80.0-98.0); NRBC Abs Auto 0.000 X10*3/uL (0.0-0.012); NRBC Pct Auto 0.0 /100WBC (0.0-0.2); Platelet Count 304 X10*3/uL (160-400); Red Blood Count 4.53 X10*6/uL (4.20-5.50); White Blood Count 8.3 X10*3/uL (4.8-10.8)
[2025-04-19 18:14] LABS: Alanine Aminotransferase 33 U/L (0-31); Albumin Level 4.5 g/dL (3.5-5.0); Alkaline Phosphatase 50 U/L (39-117); Anion Gap 11 (12-20); Aspartate Amino Transferase 24 U/L (5-31); Blood Urea Nitrogen 11 mg/dL (9-16); Calcium 9.7 mg/dL (8.4-10.2); Carbon Dioxide 28 mmol/L (22-29); Chloride 106 mmol/L (96-108); Creatinine Clr Calc Pharmacy 105.7; Estimated Glomerular Filt Rate > 60; Potassium 4.0 mmol/L (3.3-5.1); Sodium 141 mmol/L (135-145); Total Protein 7.6 g/dL (6.5-8.0)
--- OUTSIDE RECORDS SUMMARY | 2025-04-19 18:45 | XMS_ITS | Clinical Summary ---
Author Organization [facility] [address] [facility] Address [address] [facility] [address] Phone Care Team Providers Care Laboratory Engineer Name Role Phone Daniel Soto MD Primary Care Provider Allergies Active Allergy Reactions Criticality Noted Date Comments Bee Venom Protein (Honey Bee) Swelling Medium 2006 Medications buPROPion XL (WELLBUTRIN XL) 300 mg 24 hr tablet 4 Active clonazePAM (KlonoPIN) 0.5 mg tablet TAKE 1/2 OR 1 TABLET BY MOUTH TWICE A DAY NEEDED FOR SEVERE ANXIETY 4 Active etonogestrel-eluti ng contraceptive device (Nexplanon) 68 mg implant subdermal implant Inject 68 mg into the skin Once. 4 Active escitalopram (LEXAPRO) 20 mg tablet Take 1 tablet (20 mg total) by mouth 1 (one) time each day. Active oxyCODONE (OXY-IR) 5 mg immediate release capsule Take 1 capsule (5 mg total) by mouth every 6 (six) hours if needed for severe pain for up to 10 doses. Max Daily Amount: 20 mg 10 capsule 5 Active phenazopyridine (Pyridium) 100 mg tablet Take 1 tablet (100 mg total) by mouth 3 (three) times a day for 10 days. 10 tablet 5 04/15/20 25 Active Problems Problem Noted Date Diagnosed Date Smoking history 04/05/2025 Osteoarthritis of lumbar spine 08/23/2024 Chronic bilateral low back pain with bilateral s ciatica 08/23/2024 Chronic upper back pain 08/23/2024 Prediabetes 04/24/2024 High risk due to smoking in first trim lionel 10/20/2022 Overview (08/10/2024): Patient counselled on risks to : loss, ptl, ptd, and after , to include respiratory issues and SIDS. Patient cutting back at this time. Anxiety 07/21/2022 Chronic pain of both shoulders 07/21/2022 Chronic neck pain 07/21/2022 Marijuana use 04/30/2021 Overview (08/10/2024): Started age 12, smoking up to 7 blunts or 3.5 grams per day Obesity (BMI 30.0-34.9) 04/30/2021 Hydradenitis 03/25/2018 HGSIL (high grade squamous i ntraepithelial lesion) on Pap smear of cervix 10/26/2017 Overview (08/10/2024): 10/26/17 Colpo biopsy STAR 2 01/17/18 LEEP - STAR 1-2 with overall negative margins 01/02/2019 LSIL 02/28/19- colpo ECC insufficent 08/17/19-COLPO ECC 12/18/2019 Colpo wnl Depression 04/13/2013 Sacroiliac joint dysfunction 2012 Encounters Date Type Department Care Team Description 04/05/2025 9:06 AM EDT Anesthesia Event [facility] OR [address] [place] [phone] Mena Vallejo MD 04/05/2025 9:00 AM EDT - 04/05/2025 10:30 AM EDT Surgery [facility] OR [address] [place] [phone] Jeanine Sevilla MD MID URETHERAL SLING [00423 (CPT )] 04/05/2025 7:38 AM EDT - 04/05/2025 12:53 PM EDT Hospital Encounter [facility] Main OR [address] [place] [phone] Jeanine Sevilla MD Discharge Disposition: Home or Self Care from Last 3 Months Immunizations Name Administration Dates Next Due DTP 06/13/1996, 3,02/16/1992,12/16,1991 [id number] (Pentacel) 2mo to less than 5yo 06/13/1996,06/19/1993,1991,08/18 HPV, Quadrivalent 11/10/2017, 0,07/18/2009,01/18 Hepatitis B Pediatric (Enger ix B; Recombivax HB) to less than 20 yo 12/13/1997,06/14/1997,05/14/1997 Influenza Quadravalent, MDCK , 0.5ml, preservative free (Flucelvax) 6mo and older 07/21/2022,07/08/2021 Influenza trivalent, 0.5mL, preservative free (Fluarix; FluLaval; Fluzone) ages 6mo and older (Afluria) 3 years and older 08/21/2015,09/13/2008,07/05/2007 MMR, measles mumps and rubel la Live (Priorix; M-M-R II) 12mo and older 06/13/1996,10/21/1992 Meningococcal MCV4P 01/19/2008 OPV 06/13/1996, 3,1991,08/18 PPD Test 05/22/2013 Td Tetanus diptheria (Tdvax) 7yo and older 10/22/2014,11/11/2004 Tdap Tetanus diptheria acell ular pertussis (Boostrix; Adacel) 7yo and older 07/18/2009 Surgical History Surgery Date Site/Laterality Comments OTHER SURGICAL HISTORY PROCEDURE: MO UNLISTED OPHTHALMOLOGICAL SERVICE/PROCEDURE; COMMENT: cyst removed from eye lid age [address] OTHER SURGICAL HISTORY PROCEDURE: MO UNLISTED PROCEDURE EXTRAOCULAR MUSCLE; COMMENT: in infancy CERVICAL BIOPSY W/ LOOP ELECTRODE EXCISION 01/17/2018 PROCEDURE: MO CONIZATION CERVIX W/WO D&C RPR ELTRD EXC; COMMENT: STAR 2 with overall negative margins Medical History Medical History Date Comments Scoliosis associated with ot her condition DX:Scoliosis associated with other condition Depressive disorder, not els ewhere classified 01/2007 DX:Depressive disorder, not elsewhere classified; COMMENT: no medication at this time. Lumbago 03/2007 DX:Lumbago Anxiety state, unspecified DX:An xiety state, unspecified Smoker DX:Smoker Conjunctivitis 05/27/2012 DX:Conjunctiviti s SI (stress incontinence), female 08/31/2017 DX:SI (stress incontinence), female Arthritis Family History Medical History Relation Name Comments Mental illness Brother x 2 Obesity Father Other: ?cancer? Maternal Grandmother ?ang elijah? Other: IBD Maternal Grandmother Other: of tumor on liver Maternal Grandmother Arthritis Mother Bipolar disorder Mother Heart failure Mother Hypertension Mother DM, asthma, sei zures, fibromyalgia, depression Other: gout Mother Other: ?cancer? Paternal Grandfather Other: ?cancer? Paternal Grandmother No Known Problems Sister x 1 Full Breast cancer Neg Hx Cancer of Small Bowel Neg Hx Colon cancer Neg Hx Kidney cancer Neg Hx Ovarian cancer Neg Hx Pancreatic cancer Neg Hx Uterine cancer Neg Hx Relation Name Status Comments Brother x 2 Alive Father Alive Maternal Grandfather Maternal Grandmother Mother Alive Paternal Grandfather Paternal Grandmother Sister x 1 Full Alive Social History Tobacco Use Types Packs/Day Years Used Date Smoking Tobacco: Every Day Cigarettes 0.5 17.5 Started: 2007 Smokeless Tobacco: Current Alcohol Use Standard Drinks/Week Comments Not Currently 0 (1 standard drink = 0.6 oz pur e alcohol) Interpersonal Safety Answer Date Record ed Physical Abuse 04/05/2025 Verbal Abuse 04/05/2025 Comments No Sex and Gender Information Value Date Recorded Sex Assigned at Female 12/08/2024 2:36 PM EST Legal Sex Female 12:55 PM EST Gender Identity Female 12/08/2024 2:36 PM EST Sexual Orientation Straight 12/08/2024 2: 36 PM EST Obstetrics History Para Term AB IAB SAB Ectopic Multiple Livin g Live Births 2 1 1 1 1 1 1 Date Outcome GA Total Labor Labor/2nd/3rd Weight Sex Type Anes PTL Marium A1 A5 Name Clin IAB 009 Term 40w 0d 3629 g (128 oz) F Vag-S pont Livin g 8 9 Ed Delivery Location:[facility] Last Filed Vital Signs Vital Sign Reading Time Taken Comments Blood Pressure 125/84 04/05/2025 11:40 AM EDT Pulse 101 04/05/2025 11:40 AM EDT Temperature 36.4 C (97.5 F) 04/05/2025 11:40 AM EDT Respiratory Rate 18 04/05/2025 11:40 AM EDT Oxygen Saturation 98% 04/05/2025 11:40 AM EDT Inhaled Oxygen Concentration - - Weight 113 kg (250 lb) 03/29/2025 8:00 AM EDT Height 167.6 cm (5' 6 ) 03/29/2025 8:00 AM EDT Body Mass Index 40.35 03/29/2025 8:00 AM EDT Plan of Treatment Upcoming Encounters Date Type Department Care Team (Late st Contact Info) Description 07/13/2025 3:00 PM EDT Office Visit Adult Medicine [facility] [address] [place] [phone] Daniel Soto MD [address] [place] [address] Health Maintenance Due Date Last Done Comments Pneumococcal Vaccine: Pediatrics (0 to 5 Years) and At-Risk Patients (6 to 49 Years) (1 of 2 - PCV) 2010 Medicare Annual Wellness Visit 09/12/2022 Social Influencers of Health Screening 09/12/2022 COVID-19 Vaccine ( season) 2024 Depression Screening 10/04/2024 08/19/2023 DTaP,Tdap,and Td Vaccines (9 - Td or Tdap) 10/22/2024 10/22/2014, 07/18/2009, 11/11/2004, Additional history exists Influenza Vaccine (#1) 2025 , 07/08/2021, 07/08/2021, Additional history exists Cholesterol Screening (Lipid Panel) 05/06/2026 05/06/2021 Cervical Cancer Screening: HPV 08/19/2028 08/19/2023 HIB Vaccines Completed 06/13/1996, 06/04, 06/19/1993, Additional history exists IPV Vaccines Completed 06/13/1996, 06/04, 06/19/1993, Additional history exists MMR Vaccines Completed 06/13/1996, 10/21/1992 Hepatitis B Vaccines Completed 12/13/1997, 06/14/1997, 05/14/1997 Meningococcal ACWY Vaccine Completed 01/19/2008 HPV Vaccines Completed 11/10/2017, 12/04, 07/18/2009, Additional history exists HIV Screening Completed 08/19/2023 Hepatitis C Screening Completed 08/19/2023 Hepatitis A Vaccines Aged Out No long er eligible based on patient's age to complete this topic Meningococcal B Vaccine Aged Out No l onger eligible based on patient's age to complete this topic RSV Immunization Patients Under 20 months Aged Out No longer eligible based on patient's age to complete this topic Varicella Vaccines Aged Out No longer eligible based on patient's age to complete this topic Medical Devices Implanted Type Area Floor Covering Contractor Device Identifier Shelf Expiration Date Model / Serial / Lot Sling Mid-Urethral Lynx Blue - Sn/A - [id number] Implanted:Qty: 1 on 04/05/2025 by Jeanine Sevilla MD at [facility] Mesh Sling Implants N/A: Pelvis [facility] UROLOG[facility]/GYNECOL GY 10/19/2027 [id number] 10 / N/A / [id number] Procedures Procedure Name Priority Date/Time Associated Diagnosis Comments OXYGEN THERAPY, ADULT Routine 04/05/2025 10:23 AM EDT OXYGEN THERAPY, ADULT Routine 04/05/2025 10:23 AM EDT TH AN LMA(NO CHARGE) Routine 04/05/2025 9:17 AM EDT MO SLING OPERATION FOR STRESS INCONTINENCE 04/05/2025 9:06 AM EDT Stress incontinence (female) (male) DEPRESSION SCREENING Routine 08/19/2023 HPV Routine 08/19/2023 HEPATITIS C SCREENING Routine 08/19/2023 HIV SCREENING Routine 08/19/2023 LIPID PANEL Routine 05/06/2021 from Last 3 Months or Most Recently Relevant to Health Maintenance Results * TH AN LMA(NO CHARGE) (04/05/2025 9:17 AM EDT) Satish Loza CRNA - 04/05/2025 9:17 AM EDT Satish Villagomez CRNA 04/05/2025 9:18 AM General Information and Staff Patient location during procedure: OR Performed by: Satish Villagomez CRNA Authorized by: Mena Vallejo MD Intubation Additional Comments LMA placed by EMT student Felice Gibbons Airway not difficult Urgency: elective Final Airway Details Number of attempts at approach: 1 LMA Size: 4 LMA Type: Classic LMA Seal Pressure: Final airway type: LMA Indications and Patient Condition Indications for airway management: anesthesia Spontaneous Ventilation: absent Sedation level: Yes Preoxygenated: yes Soft Tissue Damage: No Dentition Unchanged: Yes Patient position: sniffing MILS maintained throughout Mask difficulty assessment: 0 - not attempted Mena Vallejo MD ANESTHESIA ORDERABLES Final Resu lt * Cervical Cancer Screening: HPV (08/19/2023) [facility] Cervical Cancer Screening: HPV normal, abstracted Result [facility] Provider HEALTH MAINTENANCE Final Result * Depression Screening (08/19/2023) [facility] Depression Screening abstracted Result [facility] Provider HEALTH MAINTENANCE Final Result * HIV Screening (08/19/2023) [facility] HIV Screening abstracted Result [facility] Provider HEALTH MAINTENANCE Final Result * Hepatitis C Screening (08/19/2023) [facility] Hepatitis C Screening abstracted Result [facility] Provider HEALTH MAINTENANCE Final Result * (ABNORMAL) Lipid panel (05/06/2021) [facility] LDL/HDL Ratio 5(A) 0 - 4 Triglycerides 315(A) 0 - 150 mg/dL Cholesterol 200 0 - 200 mg/dL HDL 40 >=40 mg/dL LDL Cholesterol 97 0 - 100 mg/dL Blood Venous blood specimen / Unknown Historical Provider LAB BLOOD ORDERABLES Dena ho Result from Last 3 Months or Most Recently Relevant to Health Maintenance Insurance MEDICARE MEDICAID - [place] Care Teams Laboratory Engineer Relationship Specialty Start Date End Date Daniel Soto MD [address] [place] [address] PCP - General 01/07/24
== END 2025-04-21 07:36 | disposition left against medical advice (07) ==
PROVIDERS: Registered Nurse Emergency; Emergency Provider Emergency Medicine
DX: H92.03 Otalgia, bilateral (principal); R10.2 Pelvic and perineal pain; Z79.899 Other long term (current) drug therapy; F17.210 Nicotine dependence, cigarettes, uncomplicated
CPT/HCPCS: 36415; 80053; 84702; 85025; 99281